=== PATIENT | female | born 1945 | race Caucasian/White ===

== ENCOUNTER 2017-02-16 20:43 | Emergency (ER) | payer MEDICARE, OTHER ==
[~2017-02-16] VITALS: Ht 149.9 cm; Wt 59.4 kg
[~2017-02-16 20:43] MED LIST: HYDR-2758 PO
[2017-02-16] MEDS ORDERED: DIPHTH,PERTUSS(ACELL),TET TOX 0.5 ML DISP.SYRIN. VAX IM ONE (22:00)
--- NOTE | 2017-02-16 22:06 | RAD ---
Examination: CT head and cervical spine without contrast. Exposure: One or more of the following individualized dose reduction techniques were utilized for this examination: 1. Automated exposure control 2. Adjustment of the mA and/or kV according to patient size 3. Use of iterative reconstruction technique. CT HEAD INDICATION: fall, hit head, no priors, COMPARISON: None Available. TECHNIQUE: 5 mm contiguous axial images were obtained from the skull base to the vertex in both bone and soft tissue algorithm. FINDINGS: Mild soft tissue swelling identified in the left forehead region likely soft tissue injury. Mild bilateral periventricular white matter hypodensities likely chronic small vessel ischemic disease. No evidence of acute intracranial hemorrhage. No extra-axial fluid collections. No mass effect or midline shift. Ventricular size is appropriate. Basal cisterns are patent. No fractures identified.Miranda-white differentiation is preserved.Paranasal sinuses and mastoid air cells are clear. IMPRESSION: 1. No acute intracranial findings. 2.Mild soft tissue swelling identified in the left forehead region likely soft tissue injury. CT CERVICAL SPINE INDICATION: fall, hit head, no priors, COMPARISON: None Available. Technique: 2.5 mm contiguous axial images were obtained from the skull base through the cervicothoracic junction in both bone and soft tissue algorithm. Additional sagittal and coronal reconstructions were also performed. FINDINGS: Vertebral body heights are maintained. The lateral masses of C1 are aligned upon C2. No fractures identified. The bony canal is patent throughout. There is minimal 2 mm anterolisthesis of C3 on C4. There is mild disc bulge with minimal protrusion identified at C3-C4 vertebral level causing mild anterior thecal sac impression. Minimal 1 mm anterolisthesis of C4 on C5. Mild diffuse disc bulge identified at this level causing minimal anterior thecal sac impression There is moderate to severe intervertebral disc height loss identified at C5-C6, C6-C7 level vertebral levels causing small posterior disc protrusions causing mild anterior thecal sac impression. The paraspinous soft tissues are unremarkable. Visualized intracranial contents are unremarkable. Lung apices are clear. IMPRESSION: 1. No acute fracture the cervical spine. Correlate clinically. 2. Multilevel degenerative changes cervical spine. Electronically signed by: Abdirashid Steven MD (02/16/2017 10:03 PM) [facility]
--- NOTE | 2017-02-16 22:11 | PHYS DOC ---
Past Medical History Past Medical History: Arthritis, Asthma, COPD, Diabetes-Type II, High Cholesterol, Hypertension, Hypothyroid Past Surgical History: Other Additional Past Surgical Histo: pt poor historian, left hand carpal tunnel, cardiac stent Alcohol Use: None Drug Use: None Adult General Chief Complaint Chief Complaint: HEAD, FACE, NECK, TRAUMA HPI HPI 71-year-old female with no history of coagulopathy or anticoagulation now status post trip and fall with a left forehead laceration and hematoma. Patient states she might have been briefly dazed but she did not have a loss of consciousness. She is not sure about her tetanus status but she has no neurologic complaints. Denies headache currently. She states her neck is mildly stiff but she has no pain in the back where her spine is. No prodromal symptoms. Review of Systems Review of Systems Constitutional: Denies fever or chills [] Eyes: Denies change in visual acuity, redness, or eye pain [] HENT: Denies nasal congestion or sore throat [] Respiratory: Denies cough or shortness of breath [] Cardiovascular: No additional information not addressed in HPI [] GI: Denies abdominal pain, nausea, vomiting, bloody stools or diarrhea [] : Denies dysuria or hematuria [] Musculoskeletal: Denies back pain or joint pain [] Integument: Denies rash or skin lesions [] Neurologic: Denies headache, focal weakness or sensory changes [] Endocrine: Denies polyuria or polydipsia [] Current Medications Current Medications Current Medications Medications (Trade) Dose Ordered Sig/Sindy Start Time Stop Time Status Last Admin Dose Admin Diphtheria/ Tetanus/Acell Pertussis (Boostrix) 0.5 ml ONCE ONCE 02/16/17 22:00 02/16/17 22:01 DC 02/16/17 21:52 0.5 ML Allergies Allergies Allergies Coded Allergies Type Severity Reaction Last Updated Verified Sulfa (Sulfonamide Antibiotics) Allergy Intermediate 02/16/17 Yes rofecoxib Allergy Intermediate 02/16/17 Yes Physical Exam Physical Exam Well-appearing 71-year-old female with a mild hematoma left forehead and a 2.5 cm laceration arcuate. Hemostatic. No bony tenderness or crepitus. Nontender C- spine with no step-off. Mild paraspinal soft tissue tenderness on the left. Nonfocal neurologic exam remainder of exam benign Constitutional: Well developed, well nourished, no acute distress, non-toxic appearance. [] HENT: Normocephalic, atraumatic, bilateral external ears normal, oropharynx moist, no oral exudates, nose normal. [] Eyes: PERRLA, EOMI, conjunctiva normal, no discharge. [] Neck: Normal range of motion, no tenderness, supple, no stridor. [] Cardiovascular:Heart rate regular rhythm, no murmur [] Lungs & Thorax: Bilateral breath sounds clear to auscultation [] Abdomen: Bowel sounds normal, soft, no tenderness, no masses, no pulsatile masses. [] Skin: Warm, dry, no erythema, no rash. [] Back: No tenderness, no CVA tenderness. [] Extremities: No tenderness, no cyanosis, no clubbing, ROM intact, no edema. [] Neurologic: Alert and oriented X 3, normal motor function, normal sensory function, no focal deficits noted. [] Psychologic: Affect normal, judgement normal, mood normal. [] Current Patient Data Vital Signs Vital Signs Date Time Temp Pulse Resp B/P (MAP) Pulse Ox O2 Delivery O2 Flow Rate FiO2 02/16/17 21:04 98.5 77 18 176/110 (132) 97 Room Air 98.5 EKG EKG [] Radiology/Procedures Radiology/Procedures [] Course & Med Decision Making Course & Med Decision Making Pertinent Labs and Imaging studies reviewed. (See chart for details) Signs and symptoms consistent with minor head injury with left forehead hematoma and laceration. Laceration irrigated and repaired with Dermabond. Patient tolerated well. Ice pack applied. CT of the head unremarkable as well as the C-spine. No evidence of fracture. This is consistent with patient's clinical exam with no bony tenderness. She continues to have a nonfocal neurologic exam both initially and on reevaluation prior to discharge. No further workup or treatment indicated. Patient family agree with outpatient follow-up and strict return precautions given [] Dragon Disclaimer Dragon Disclaimer This electronic medical record was generated, in whole or in part, using a voice recognition dictation system. Departure Departure Impression: Primary Impression: Minor head injury Additional Impressions: Traumatic hematoma of forehead Forehead laceration Cervical muscle strain Referrals: JHONNY STREETER Jr, MD (PCP) Patient Instructions: Head Injury, Adult Additional Instructions: You have suffered a minor head injury today. Her CAT scan of her head showed no bleeding or fracture. It appears he has some very mild neck strain so expect her neck muscles to be sore. Your CT neck showed no evidence of fracture of her cervical spine. You have a hematoma which means a collection of blood in the soft tissues of your left forehead. Be aware this will turn black and blue and likely give you a black eye on the left. Her laceration has been repaired with Dermabond. Do not pick scrub or apply ointment it will fall off on its own when the wound is healed. Her tetanus is been updated and this also includes pertussis coverage which means whooping cough coverage. I'll appear doctor tomorrow and return immediately for new severe worsening symptoms specifically for worsening headache and especially any change in mental status. Problem Qualifiers JORGE LAWRENCE MD Feb 16, 2017 22:11
[2017-02-16 22:30] VITALS: BP 147/68
== END 2017-02-16 22:58 | disposition home or self-care (01) ==
LOC: ER 20:43
DX: S01.81XA Laceration without foreign body of other part of head, initial encounter (principal); S16.1XXA Strain of muscle, fascia and tendon at neck level, initial encounter; E11.9 Type 2 diabetes mellitus without complications; E03.9 Hypothyroidism, unspecified; E78.00 Pure hypercholesterolemia, unspecified; I10 Essential (primary) hypertension; J44.9 Chronic obstructive pulmonary disease, unspecified; M19.90 Unspecified osteoarthritis, unspecified site; G56.02 Carpal tunnel syndrome, left upper limb; Z95.5 Presence of coronary angioplasty implant and graft; Z88.2 Allergy status to sulfonamides; Z88.6 Allergy status to analgesic agent; Y28.8XXA Contact with other sharp object, undetermined intent, initial encounter; Y93.89 Activity, other specified; Y99.8 Other external cause status; Y92.89 Other specified places as the place of occurrence of the external cause
CPT/HCPCS: 12001; 70450; 72125; 90471; 90715; 99284-25

== ENCOUNTER 2017-03-16 06:02 | Inpatient (IN) | payer MEDICARE, OTHER ==
[~2017-03-16] VITALS: Ht 149.9 cm; Wt 61.0 kg
--- NOTE | 2017-03-16 06:54 | PHYS DOC ---
Past Medical History Past Medical History: Asthma, CAD, Diabetes-Type II, Heart Disease, Hypertension, Hypothyroid Past Surgical History: Hysterectomy Additional Past Surgical Histo: pt poor historian, left hand carpal tunnel, cardiac stent Alcohol Use: None Drug Use: None Adult General Chief Complaint Chief Complaint: ALTERED MENTAL STATUS HPI HPI This is a pleasant 71-year-old female with history of diabetes, on Lantus, NovoLog, and metformin, history of hypertension, History of coronary artery disease, history of hypothyroidism who presents with acute onset of mental status changes. Patient got up earlier this morning to use the restroom on the way to the restroom she felt lightheaded and dizzy as if her sugars were falling. She did not take her Lantus last night as she normally should because uric noted that her sugars were low. When she experiences hypoglycemia she typically gets lightheaded and dizzy with diaphoresis and slowed mental status. This is much the same but unfortunately her symptoms lasted greater than 2-3 hours. This morning while sitting in the bathroom she developed diarrhea and increased generalized weakness. Patient's admits to no chest pain, no shortness of breath, no abdominal pain, no headache, no focal neurologic deficit, change in vision, no prior problems with speech. She did note that she was very weak and having difficulty getting up from the toilet which is why she sat there for as long she did. Her realized that she was so weak called family to help transport her to the hospital. She denies any other change in medications, denies any fevers, nausea, vomiting, and abdominal pain, UTI symptoms or other complaints. My syncope, altered mental status differential includes but not limited to: Neurally mediated vasovagal syncope, situational syncope, cardiac sinus syncope , orthostatic hypertension, medications, psychiatric interventions, neurologic syncope, cardiogenic syncopal B, to include organic heart disease congestive heart failure, cardiac dysrhythmia, seizure disorder, stroke or transient ischemic attack, bradycardia dysrhythmias, tachycardia dysrhythmias, PT, V. fib V. fib, cardiac abnormalities like first degree secondary third-degree AV blocks , prolonged QT, hypertrophic Obed myopathy, severe pulmonic stenosis, pulmonary arterial hypertension, atrial myxomas, aortic stenosis, valvular failure, alcohol consumption, adrenal insufficiency, drug effects from things like antidepressants, antihypertensive agents like beta blockers, vasodilators including calcium channel blockers and nitrates, autonomic insufficiency. Review of Systems Review of Systems Constitutional: Denies fever patient does describe some chills and diaphoresis with the symptoms. Eyes: Denies change in visual acuity, redness, or eye pain [] HENT: Denies nasal congestion or sore throat [] Respiratory: Denies cough or shortness of breath [] Cardiovascular: No additional information not addressed in HPI [] GI: Denies abdominal pain, nausea, vomiting, bloody stools or diarrhea [] : Denies dysuria or hematuria [] Musculoskeletal: Denies back pain does have a history of chronic joint pain secondary to rheumatoid arthritis. Integument: Denies rash or skin lesions [] Neurologic: She denies any headache or focal neurologic weakness but has felt generalized weakness. Endocrine: Denies polyuria or polydipsia [] Current Medications Current Medications Current Medications Medications (Trade) Dose Ordered Sig/Sindy Start Time Stop Time Status Last Admin Dose Admin Ciprofloxacin Lactate 200 ml @ 200 mls/hr Q12HR 03/16/17 08:30 Ondansetron HCl (Zofran) 4 mg PRN Q8HRS PRN 03/16/17 08:45 03/17/17 08:44 Sodium Chloride 1,000 ml @ 120 mls/hr Q8H20M 03/16/17 08:45 03/17/17 08:44 Allergies Allergies Allergies Coded Allergies Type Severity Reaction Last Updated Verified Sulfa (Sulfonamide Antibiotics) Allergy Intermediate 02/16/17 Yes rofecoxib Allergy Intermediate 02/16/17 Yes Physical Exam Physical Exam Patient's vital signs reviewed and noted patient not tachypnea tachycardic but patient is very hypertensive 193/111. She is not febrile. Constitutional: Well developed, thin she is mildly diaphoretic but awake alert and oriented 3 she seems lucid and interactive. HENT: Normocephalic, atraumatic, bilateral external ears normal, dry mucous membranes, no oral exudates, nose normal is a small area of Dermabond applied to the left superior brow. no Active bleeding no step-offs no obvious signs of trauma to the face. No midface instability. [] Eyes: PERRLA, EOMI, conjunctiva normal, no discharge. [] Neck: Normal range of motion, no tenderness, supple, no stridor. [] Cardiovascular:Heart rate regular rhythm, no murmur [] Lungs & Thorax: Bilateral breath sounds clear to auscultation [] Abdomen: Soft. Hyperactive bowel sounds. no Guarding rebound or organomegaly. Skin: Warm, no erythema, no rash. [] Back: No tenderness, no CVA tenderness. [] Extremities: No tenderness, no cyanosis, no clubbing, ROM intact, no edema. [] Neurologic: Alert and oriented X 3, normal motor function, normal sensory function, no focal deficits noted. Patient's does seem to have some memory issues but she is very lucid. She is very cognizant of the events that occurred early this morning. Cranial nerves II through XII are intact. Patient has normal sensation to light touch and appropriate medical office receptionist of lower extremity's. Patient's capillary refill is brisk +2 patient has mildly diaphoretic skin Psychologic: Affect normal, judgement normal, mood normal. [] Current Patient Data Vital Signs Vital Signs Date Time Temp Pulse Resp B/P (MAP) Pulse Ox O2 Delivery O2 Flow Rate FiO2 03/16/17 06:55 93.3 67 24 144/76 (98) 97 Nasal Cannula 2.0 93.3 Lab Values Laboratory Tests Test 03/16/17 06:08 03/16/17 06:25 Glucose (Fingerstick) 169 mg/dL (70-99) H White Blood Count 9.3 x10^3/uL (4.0-11.0) Red Blood Count 4.95 x10^6/uL (3.50-5.40) Hemoglobin 14.7 g/dL (12.0-15.5) Hematocrit 44.9 % (36.0-47.0) Mean Corpuscular Volume 91 fL (79-100) Mean Corpuscular Hemoglobin 30 pg (25-35) Mean Corpuscular Hemoglobin Concent 33 g/dL (31-37) Red Cell Distribution Width 15.2 % (11.5-14.5) H Platelet Count 100 x10^3/uL (140-400) L Neutrophils (%) (Auto) 70 % (31-73) Lymphocytes (%) (Auto) 17 % (24-48) L Monocytes (%) (Auto) 13 % (0-9) H Eosinophils (%) (Auto) 1 % (0-3) Basophils (%) (Auto) 1 % (0-3) Neutrophils # (Auto) 6.4 x10^3uL (1.8-7.7) Lymphocytes # (Auto) 1.5 x10^3/uL (1.0-4.8) Monocytes # (Auto) 1.2 x10^3/uL (0.0-1.1) H Eosinophils # (Auto) 0.1 x10^3/uL (0.0-0.7) Basophils # (Auto) 0.1 x10^3/uL (0.0-0.2) Urine Collection Type Unknown Urine Color Yellow Urine Clarity Clear Urine pH 5.5 Urine Specific [place] 1.015 Urine Protein Negative mg/dL (NEG-TRACE) Urine Glucose (UA) 500 mg/dL (NEG) Urine Ketones (Stick) Negative mg/dL (NEG) Urine Blood Negative (NEG) Urine Nitrite Positive (NEG) Urine Bilirubin Negative (NEG) Urine Urobilinogen Dipstick 0.2 mg/dL (0.2 mg/dL) Urine Leukocyte Esterase Moderate (NEG) Urine RBC Occ /HPF (0-2) Urine WBC 20-40 /HPF (0-4) Urine Squamous Epithelial Cells Mod /LPF Urine Bacteria Many /HPF (0-FEW) Sodium Level 143 mmol/L (136-145) Potassium Level 3.9 mmol/L (3.5-5.1) Chloride Level 104 mmol/L (98-107) Carbon Dioxide Level 26 mmol/L (21-32) Anion Gap 13 (6-14) Blood Urea Nitrogen 17 mg/dL (7-20) Creatinine 1.1 mg/dL (0.6-1.0) H Estimated GFR (Cockcroft-Gault) 48.8 BUN/Creatinine Ratio 15 (6-20) Glucose Level 131 mg/dL (70-99) H Lactic Acid Level 2.4 mmol/L (0.4-2.0) H Calcium Level 10.2 mg/dL (8.5-10.1) H Magnesium Level 1.6 mg/dL (1.8-2.4) L Total Bilirubin 0.6 mg/dL (0.2-1.0) Aspartate Amino Transferase (AST) 36 U/L (15-37) Alanine Aminotransferase (ALT) 23 U/L (14-59) Alkaline Phosphatase 126 U/L (46-116) H Creatine Kinase 62 U/L (26-192) Creatine Kinase MB (Mass) 3.2 ng/mL (0.0-3.6) Creatine Kinase MB Relative Index % (0-4) Troponin I Quantitative 0.142 ng/mL (0.000-0.055) VV-Vfe-R-Type Natriuretic Peptide 422 pg/mL (0-124) H Total Protein 9.4 g/dL (6.4-8.2) H Albumin 4.0 g/dL (3.4-5.0) Albumin/Globulin Ratio 0.7 (1.0-1.7) L Thyroid Stimulating Hormone (TSH) 5.348 uIU/mL (0.358-3.74) H Laboratory Tests 03/16/17 06:25 Laboratory Tests 03/16/17 06:25 EKG EKG [] EKG timed 6:10 AM demonstrates according to Dr. Lynch who read the EKG normal sinus rhythm with a heart rate of 67 NH interval was 212 which demonstrates first grade AV block QRS is 110 which is mildly elevated patient demonstrates a prolonged QT of 491. Radiology/Procedures Radiology/Procedures [] IMAGING REPORT Signed PATIENT: PHUONG MORENO ACCOUNT: [id number] : 1945 LOCATION: ER AGE: 71 SEX: F EXAM STATUS: REG ER ORD. PHYSICIAN: KRYSTA LYNCH MD REASON: ams PROCEDURE: PORTABLE CHEST 1V Indication change in mental status. Shortness of breath. Protocol study. A single view of the chest was obtained. No prior imaging of the chest is available. Heart size is at the upper limits of normal. There is no gross congestive heart failure. There is linear atelectasis or scar in the mid lung smith bilaterally. There is no significant pleural fluid. No consolidated pneumonia is seen. IMPRESSION: Areas of scarring or atelectasis in both lungs. A definite acute finding in the chest is not seen DICTATED and SIGNED BY: FREDDY BELLA MD DATE: 03/16/17 0754 CC: KRYSTA LYNCH MD; JHONNY STREETER Jr, MD ~ Impressions: [id number] [place] [address] IMAGING REPORT Signed PATIENT: PHUONG MORENO ACCOUNT: [id number] : 1945 LOCATION: ER AGE: 71 SEX: F EXAM STATUS: REG ER ORD. PHYSICIAN: KRYSTA LYNCH MD REASON: ams PROCEDURE: CT HEAD WO CONTRAST Indication change in mental status. Noncontrast images of the head were obtained. Note is made of a previous examination just under one month ago. The calvarium appears unremarkable. The visualized paranasal sinuses appear unremarkable. There is no subdural or epidural hematoma. There is no mass or midline shift. There is mild atrophy. There is some increased lucency in the deep white matter compatible with microvascular disease. No hemorrhage or acute finding is seen. There has not been a significant change when compared to the previous exam. IMPRESSION: No acute finding intracranially. No significant change. PQRS Compliance Statement: One or more of the following individualized dose reduction techniques were utilized for this examination: 1. Automated exposure control 2. Adjustment of the mA and/or kV according to patient size 3. Use of iterative reconstruction technique DICTATED and SIGNED BY: FREDDY BELLA MD DATE: 03/16/1719 CC: KRYSTA LYNCH MD; JHONNY STREETER Jr, MD ~ Course & Med Decision Making Course & Med Decision Making Pertinent Labs and Imaging studies reviewed. (See chart for details) she presents with dizziness and near syncope and generalized weakness and occurred this morning while walking to the bathroom. She denies any chest pain or shortness of breath just fatigue. Patient felt that her sugars are dropping which she's had several times in the past. She has had a history of heart disease, diabetes, hyperlipidemia, hyperthyroidism with no change in medications although she says her sugars were low less on Brisa did not take her regular regimen of medications. She will this morning with symptoms of dizziness weakness was sitting in the bathroom. She became acutely altered. Her Accu-Chek on arrival was 162 [] Semaphore Operator note: Internal medicine physician page at 8:20 AM Semaphore Operator called at of the service Dr. MONTAÑO Consult called back at 8:26 AM Discussed the case I presented and they agreed with admission. Time of acceptance 82 6 AM. Patient tells me that their symptoms given during CC are improved. We reviewed labs and radiology reports with patient and any family at bedside. Time is now 8 AM. Patient's x-ray x-ray is unremarkable 1 view chest x-ray read by Dr. Lynch shows no signs of congestive heart failure or infiltrate or pneumothorax. She does tell me she is hungry and thirsty and would like a meal. I did tell her about her elevated troponin and likelihood of need admission secondary to her near syncope and possible hypoglycemic event. Patient tells me that their symptoms given during CC are improved. We reviewed labs and radiology reports with patient and any family at bedside. Patient's feeling markedly better at 840 a.m. She's been accepted in the hospitalist service. Patient has no elevated troponin and after reviewing her laboratory work nursing notes and vital signs is evident that she may have a urinary tract infection as well which may be causing her symptoms. Given her elevated troponin , elevated sugar level, her tachycardia and elevated lactic acid. I believe the patient to be suffering from early signs of urosepsis. She's been giving a second liter of fluids she will have a dose of antibiotics of ciprofloxacin given here in the IV in the ER. Patient's aunt had blood cultures completed and will be admitted to telemetry for monitoring for serial troponins. Impression: Elevated troponin, possible urosepsis, elevated glucose hyperglycemia, near syncope, weakness, and a lactic acid. That is elevated. Disposition: Admission to the hospital to the telemetry unit. Will have consultation by cardiology Dr. Savage. I spent approximately 45-50 minutes working and engaged directly in the patient care providing critical care evaluation this includes but not limited to time spent engaged in work directly related to the individual patients care. I spent time at the bedside, reviewing test results, discussing the case with staff, documenting the medical record and time spent with EMS discussing specific treatment issues when the patient presented and during this evaluation. Dragon Disclaimer Dragon Disclaimer This electronic medical record was generated, in whole or in part, using a voice recognition dictation system. Departure Departure Impression: Primary Impression: Elevated troponin Additional Impressions: Sepsis Hyperglycemia Altered mental status Generalized weakness Disposition: ADMITTED INPATIENT Admitting Physician: Hong Montaño Condition: GUARDED Referrals: JHONNY STREETER Jr, MD (PCP) Problem Qualifiers KRYSTA LYNHC MD Mar 16, 2017 06:54
[2017-03-16 07:14] LABS: BASO # 0.1 x10^3/uL (0.0-0.2); BASO % 1 % (0-3); EOS % 1 % (0-3); HEMATOCRIT 44.9 % (36.0-47.0); HEMOGLOBIN 14.7 g/dL (12.0-15.5); LYMPH # 1.5 x10^3/uL (1.0-4.8); LYMPH % 17 % (24-48); MEAN CORPUSCULAR HEMOGLOBIN 30 pg (25-35); MEAN CORPUSCULAR HGB CONC 33 g/dL (31-37); MEAN CORPUSCULAR VOLUME 91 fL (79-100); MONO % 13 % (0-9); NEUT % 70 % (31-73); PLATELET COUNT 100 x10^3/uL (140-400); RED BLOOD COUNT 4.95 x10^6/uL (3.50-5.40); RED CELL DISTRIBUTION WIDTH 15.2 % (11.5-14.5); WHITE BLOOD COUNT 9.3 x10^3/uL (4.0-11.0)
[2017-03-16 07:17] LABS: BILIRUBIN,URINE NEGATIVE (NEG); GLUCOSE,URINE 500 mg/dL (NEG); NITRITE,URINE POSITIVE (NEG); PH,URINE 5.5; PROTEIN,URINE NEGATIVE (NEG-TRACE); UROBILINOGEN,URINE 0.2 mg/dL (0.2 mg/dL)
[2017-03-16 07:33] LABS: ALBUMIN/GLOBULIN RATIO 0.7 (1.0-1.7); GFR 48.8; MAGNESIUM 1.6 mg/dL (1.8-2.4); POTASSIUM 3.9 mmol/L (3.5-5.1); TOTAL BILIRUBIN 0.6 mg/dL (0.2-1.0); TOTAL PROTEIN 9.4 g/dL (6.4-8.2)
[2017-03-16 07:38] LABS: CALCIUM 10.2 mg/dL (8.5-10.1); CREATININE 1.1 mg/dL (0.6-1.0)
[2017-03-16 07:39] LABS: CKMB MASS 3.2 ng/mL (0.0-3.6); CREATINE KINASE 62 U/L (26-192)
[2017-03-16 07:40] LABS: BACTERIA,URINE MANY /HPF (0-FEW); RBC,URINE OCC /HPF (0-2); SQUAMOUS EPITHELIAL CELL,UR MOD /LPF; WBC,URINE 20-40 /HPF (0-4)
--- NOTE | 2017-03-16 07:58 | RAD ---
Indication change in mental status. Shortness of breath. Protocol study. A single view of the chest was obtained. No prior imaging of the chest is available. Heart size is at the upper limits of normal. There is no gross congestive heart failure. There is linear atelectasis or scar in the mid lung smith bilaterally. There is no significant pleural fluid. No consolidated pneumonia is seen. IMPRESSION: Areas of scarring or atelectasis in both lungs. A definite acute finding in the chest is not seen
--- NOTE | 2017-03-16 08:25 | RAD ---
Indication change in mental status. Noncontrast images of the head were obtained. Note is made of a previous examination just under one month ago. The calvarium appears unremarkable. The visualized paranasal sinuses appear unremarkable. There is no subdural or epidural hematoma. There is no mass or midline shift. There is mild atrophy. There is some increased lucency in the deep white matter compatible with microvascular disease. No hemorrhage or acute finding is seen. There has not been a significant change when compared to the previous exam. IMPRESSION: No acute finding intracranially. No significant change. PQRS Compliance Statement: One or more of the following individualized dose reduction techniques were utilized for this examination: 1. Automated exposure control 2. Adjustment of the mA and/or kV according to patient size 3. Use of iterative reconstruction technique
[2017-03-16] MEDS ORDERED: IV NORMAL SALINE 1000ML BAG 1,000 ML IV ONE (08:30)
[2017-03-16] MEDS ORDERED: ONDANSETRON PF 4 MG/2 ML VIAL. IV PRN ×2 (08:45→15:45)
[2017-03-16] MEDS: CIPROFLOXACIN 400MG PREMIX 200 ML IV SCH ×2 (09:20→21:20)
[2017-03-16] MEDS: IV NORMAL SALINE 1000ML BAG 1,000 ML IV SCH ×2 (10:00→17:05)
--- NOTE | 2017-03-16 10:36 | EKG ---
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
[2017-03-16 10:49] VITALS: BP 169/84
[2017-03-16 11:00] VITALS: BP 157/72
[2017-03-16] MEDS ORDERED: PRED5TAB PO (12:56)
[2017-03-16] MEDS ORDERED: ASPI-482 PO (12:56)
[2017-03-16] MEDS ORDERED: INSU100I17 SUBCUT (12:56)
[2017-03-16] MEDS ORDERED: VENTOLIN HFA18 GM INH (12:56)
[2017-03-16] MEDS ORDERED: SERT100T8 PO (12:56)
[2017-03-16] MEDS ORDERED: LEVO75TA5 PO (12:56)
[2017-03-16] MEDS ORDERED: INSU100I13 SUBCUT (12:56)
[2017-03-16] MEDS ORDERED: BUDE10.22 IH (12:56)
[2017-03-16] MEDS ORDERED: LOSA100T6 PO (12:56)
[2017-03-16] MEDS ORDERED: METF500T4 PO (12:56)
[2017-03-16] MEDS ORDERED: EZET10TA18 PO (12:56)
[2017-03-16] MEDS ORDERED: METO25TA4 PO (12:56)
[2017-03-16] MEDS ORDERED: OMEG1CAP6 PO (12:56)
[2017-03-16] MEDS ORDERED: CETI10TA16 PO (12:56)
[2017-03-16] MEDS ORDERED: CHOL500021 PO (12:56)
[2017-03-16] MEDS ORDERED: BUPR100T8 PO (12:56)
[2017-03-16] MEDS ORDERED: ATORVASTATIN CA80 MG PO (12:56)
[2017-03-16 15:00] VITALS: BP 142/78
[2017-03-16] MEDS ORDERED: HYDROcodone/APAP 5/325MG 1 TAB TABLET PO PRN (15:45)
[2017-03-16] MEDS ORDERED: MORPHINE SULFATE 2 MG/ML DISP.SYRIN. IV PRN (15:45)
[2017-03-16] MEDS ORDERED: DEXTROSE 50% 25 GM / 50ML DISP.SYRIN. IV PRN (15:45)
[2017-03-16] MEDS ORDERED: ACETAMINOPHEN 325 MG TABLET. PO PRN (15:45)
[2017-03-16] MEDS ORDERED: DOCUSATE SODIUM 100 MG CAPSULE. PO PRN (15:45)
[2017-03-16] MEDS ORDERED: traMADol 50 MG TABLET PO PRN (15:45)
[2017-03-16] MEDS ORDERED: hydrALAZINE 20 MG/ML VIAL. IVP PRN (15:45)
--- NOTE | 2017-03-16 15:55 | PDOC1 ---
History and Physical Date of Admission Date of Admission 03/16/17 Identification/Chief Complaint Chief Complaint syncope Problems: Source Source: Chart review, Patient History of Present Illness History of Present Illness HPI HPI This is a pleasant 71-year-old female with history of diabetes, on Lantus, NovoLog, and metformin, history of hypertension, History of coronary artery disease with 1 stent, hypothyroidism, was sent for syncope. Pt is a poor historian. Pt said she was in the bathroom, then felt diaphoresis, thought to be hypoglycemia, but didnot check it, then likely syncoped, not hitting head, still sitting on the toilet. She doesnot remember what happened. did have incontinence. SHE told me use lantus 60u qhs, then aspart 30u tid, eating well. recentlly have more episode of hypoglycemia. could not reach her by phone, then called grand daughter to come to check her, then called ems. Pt feels weakness, otherwise no sob, no chest pain. has chronic urine incontinence for2 years, no dysuria, or frequency. T 93 IN er. GLUS 50 as per nurse in ER. Past Medical History Past Medical History Asthma, CAD, Diabetes-Type II, Heart Disease, Hypertension, Hypothyroid Past Surgical History Past Surgical History Past Surgical History: Hysterectomy Family History Family History: Hypertension Social History Smoke: No ALCOHOL: none Drugs: None Current Problem List Problem List Problems Medical Problems: (1) Altered mental status Status: Acute (2) Elevated troponin Status: Acute (3) Generalized weakness Status: Acute (4) Hyperglycemia Status: Acute (5) Sepsis Status: Acute Current Medications Current Medications Current Medications Medications (Trade) Dose Ordered Sig/Sindy Start Time Stop Time Status Last Admin Dose Admin Ciprofloxacin Lactate 200 ml @ 200 mls/hr Q12HR 03/16/17 08:30 03/16/17 09:20 200 MLS/HR Ondansetron HCl (Zofran) 4 mg PRN Q8HRS PRN 03/16/17 08:45 03/17/17 08:44 Sodium Chloride 1,000 ml @ 120 mls/hr Q8H20M 03/16/17 08:45 03/17/17 08:44 03/16/17 10:00 120 MLS/HR Allergies Allergies Allergies Coded Allergies Type Severity Reaction Last Updated Verified Sulfa (Sulfonamide Antibiotics) Allergy Intermediate 02/16/17 Yes rofecoxib Allergy Intermediate 02/16/17 Yes ROS Review of System CONSTITUTIONAL: No fever or chills EYES: No recent changes SKIN: No rash or itching CARDIOVASCULAR: No chest pain, syncope, palpitations, or edema RESPIRATORY: No SOB or cough GASTROINTESTINAL: No nausea, vomiting or abdominal pain NEUROLOGICAL: No headaches or weakness ENDOCRINE: No cold or heat intolerance GENITOURINARY: No urgency or frequency of urination MUSCULOSKELETAL: No back pain or joint pain LYMPHATICS: No enlarged lymph nodes PSYCHIATRIC: No anxiety or depression Physical Exam Physical Exam GEN.: No apparent distress. Alert and oriented. HEENT: Head is normocephalic, atraumatic NECK: Supple. LUNGS: Clear to auscultation. HEART: RRR, S1, S2 present. Peripheral pulses intact ABDOMEN: Soft, nontender. Positive bowel sounds. EXTREMITIES: Without any cyanosis. NEUROLOGIC: Normal speech, normal tone PSYCHIATRIC: Normal affect, normal mood. SKIN: No ulcerations Vitals Vitals Vital Signs Date Time Temp Pulse Resp B/P (MAP) Pulse Ox O2 Delivery O2 Flow Rate FiO2 03/16/17 11:00 98.1 75 16 157/72 (100) 99 Room Air 98.1 03/16/17 06:55 2.0 Labs Labs Laboratory Tests Test 03/16/17 06:08 03/16/17 06:25 03/16/17 09:25 03/16/17 10:30 Glucose (Fingerstick) 169 mg/dL (70-99) 93 mg/dL (70-99) White Blood Count 9.3 x10^3/uL (4.0-11.0) Red Blood Count 4.95 x10^6/uL (3.50-5.40) Hemoglobin 14.7 g/dL (12.0-15.5) Hematocrit 44.9 % (36.0-47.0) Mean Corpuscular Volume 91 fL (79-100) Mean Corpuscular Hemoglobin 30 pg (25-35) Mean Corpuscular Hemoglobin Concent 33 g/dL (31-37) Red Cell Distribution Width 15.2 % (11.5-14.5) Platelet Count 100 x10^3/uL (140-400) Neutrophils (%) (Auto) 70 % (31-73) Lymphocytes (%) (Auto) 17 % (24-48) Monocytes (%) (Auto) 13 % (0-9) Eosinophils (%) (Auto) 1 % (0-3) Basophils (%) (Auto) 1 % (0-3) Neutrophils # (Auto) 6.4 x10^3uL (1.8-7.7) Lymphocytes # (Auto) 1.5 x10^3/uL (1.0-4.8) Monocytes # (Auto) 1.2 x10^3/uL (0.0-1.1) Eosinophils # (Auto) 0.1 x10^3/uL (0.0-0.7) Basophils # (Auto) 0.1 x10^3/uL (0.0-0.2) Urine Collection Type Unknown Urine Color Yellow Urine Clarity Clear Urine pH 5.5 Urine Specific [place] 1.015 Urine Protein Negative mg/dL (NEG-TRACE) Urine Glucose (UA) 500 mg/dL (NEG) Urine Ketones (Stick) Negative mg/dL (NEG) Urine Blood Negative (NEG) Urine Nitrite Positive (NEG) Urine Bilirubin Negative (NEG) Urine Urobilinogen Dipstick 0.2 mg/dL (0.2 mg/dL) Urine Leukocyte Esterase Moderate (NEG) Urine RBC Occ /HPF (0-2) Urine WBC 20-40 /HPF (0-4) Urine Squamous Epithelial Cells Mod /LPF Urine Bacteria Many /HPF (0-FEW) Sodium Level 143 mmol/L (136-145) Potassium Level 3.9 mmol/L (3.5-5.1) Chloride Level 104 mmol/L (98-107) Carbon Dioxide Level 26 mmol/L (21-32) Anion Gap 13 (6-14) Blood Urea Nitrogen 17 mg/dL (7-20) Creatinine 1.1 mg/dL (0.6-1.0) Estimated GFR (Cockcroft-Gault) 48.8 BUN/Creatinine Ratio 15 (6-20) Glucose Level 131 mg/dL (70-99) Lactic Acid Level 2.4 mmol/L (0.4-2.0) 2.1 mmol/L (0.4-2.0) Calcium Level 10.2 mg/dL (8.5-10.1) Magnesium Level 1.6 mg/dL (1.8-2.4) Total Bilirubin 0.6 mg/dL (0.2-1.0) Aspartate Amino Transf (AST/SGOT) 36 U/L (15-37) Alanine Aminotransferase (ALT/SGPT) 23 U/L (14-59) Alkaline Phosphatase 126 U/L (46-116) Creatine Kinase 62 U/L (26-192) Creatine Kinase MB (Mass) 3.2 ng/mL (0.0-3.6) Creatine Kinase MB Relative Index % (0-4) Troponin I Quantitative 0.142 ng/mL (0.000-0.055) VX-Eeh-C-Type Natriuretic Peptide 422 pg/mL (0-124) Total Protein 9.4 g/dL (6.4-8.2) Albumin 4.0 g/dL (3.4-5.0) Albumin/Globulin Ratio 0.7 (1.0-1.7) Thyroid Stimulating Hormone (TSH) 5.348 uIU/mL (0.358-3.74) Test 03/16/17 11:42 03/16/17 14:15 Glucose (Fingerstick) 97 mg/dL (70-99) Troponin I Quantitative 0.174 ng/mL (0.000-0.055) Laboratory Tests Test 03/16/17 06:08 03/16/17 06:25 03/16/17 09:25 03/16/17 10:30 Glucose (Fingerstick) 169 mg/dL (70-99) 93 mg/dL (70-99) White Blood Count 9.3 x10^3/uL (4.0-11.0) Red Blood Count 4.95 x10^6/uL (3.50-5.40) Hemoglobin 14.7 g/dL (12.0-15.5) Hematocrit 44.9 % (36.0-47.0) Mean Corpuscular Volume 91 fL (79-100) Mean Corpuscular Hemoglobin 30 pg (25-35) Mean Corpuscular Hemoglobin Concent 33 g/dL (31-37) Red Cell Distribution Width 15.2 % (11.5-14.5) Platelet Count 100 x10^3/uL (140-400) Neutrophils (%) (Auto) 70 % (31-73) Lymphocytes (%) (Auto) 17 % (24-48) Monocytes (%) (Auto) 13 % (0-9) Eosinophils (%) (Auto) 1 % (0-3) Basophils (%) (Auto) 1 % (0-3) Neutrophils # (Auto) 6.4 x10^3uL (1.8-7.7) Lymphocytes # (Auto) 1.5 x10^3/uL (1.0-4.8) Monocytes # (Auto) 1.2 x10^3/uL (0.0-1.1) Eosinophils # (Auto) 0.1 x10^3/uL (0.0-0.7) Basophils # (Auto) 0.1 x10^3/uL (0.0-0.2) Urine Collection Type Unknown Urine Color Yellow Urine Clarity Clear Urine pH 5.5 Urine Specific [place] 1.015 Urine Protein Negative mg/dL (NEG-TRACE) Urine Glucose (UA) 500 mg/dL (NEG) Urine Ketones (Stick) Negative mg/dL (NEG) Urine Blood Negative (NEG) Urine Nitrite Positive (NEG) Urine Bilirubin Negative (NEG) Urine Urobilinogen Dipstick 0.2 mg/dL (0.2 mg/dL) Urine Leukocyte Esterase Moderate (NEG) Urine RBC Occ /HPF (0-2) Urine WBC 20-40 /HPF (0-4) Urine Squamous Epithelial Cells Mod /LPF Urine Bacteria Many /HPF (0-FEW) Sodium Level 143 mmol/L (136-145) Potassium Level 3.9 mmol/L (3.5-5.1) Chloride Level 104 mmol/L (98-107) Carbon Dioxide Level 26 mmol/L (21-32) Anion Gap 13 (6-14) Blood Urea Nitrogen 17 mg/dL (7-20) Creatinine 1.1 mg/dL (0.6-1.0) Estimated GFR (Cockcroft-Gault) 48.8 BUN/Creatinine Ratio 15 (6-20) Glucose Level 131 mg/dL (70-99) Lactic Acid Level 2.4 mmol/L (0.4-2.0) 2.1 mmol/L (0.4-2.0) Calcium Level 10.2 mg/dL (8.5-10.1) Magnesium Level 1.6 mg/dL (1.8-2.4) Total Bilirubin 0.6 mg/dL (0.2-1.0) Aspartate Amino Transf (AST/SGOT) 36 U/L (15-37) Alanine Aminotransferase (ALT/SGPT) 23 U/L (14-59) Alkaline Phosphatase 126 U/L (46-116) Creatine Kinase 62 U/L (26-192) Creatine Kinase MB (Mass) 3.2 ng/mL (0.0-3.6) Creatine Kinase MB Relative Index % (0-4) Troponin I Quantitative 0.142 ng/mL (0.000-0.055) QQ-Fdd-X-Type Natriuretic Peptide 422 pg/mL (0-124) Total Protein 9.4 g/dL (6.4-8.2) Albumin 4.0 g/dL (3.4-5.0) Albumin/Globulin Ratio 0.7 (1.0-1.7) Thyroid Stimulating Hormone (TSH) 5.348 uIU/mL (0.358-3.74) Test 03/16/17 11:42 03/16/17 14:15 Glucose (Fingerstick) 97 mg/dL (70-99) Troponin I Quantitative 0.174 ng/mL (0.000-0.055) VTE Prophylaxis Ordered VTE Prophylaxis Devices: Yes VTE Pharmacological Prophylaxi: Yes Assessment/Plan Assessment/Plan syncope, vasovagal? vs, hypoglycemia h/o CAD wo chest pain now, + troponin dm2 htn h/o asthma hld hypothyroidism hypothermia ckd3 lactate acidosis chronic urine incontinence, possible uti plan: card consult check hba1c insulin levemir 30u qhs, aspart 10 tid, ssi ptot dvt ppx cont home meds tsh high, check t4 check echo cipro for now, fu ucx check cortisol tmr JUAN C Banks MD Mar 16, 2017 15:55
[2017-03-16] MEDS: CETIRIZINE HCL 10 MG TABLET. PO SCH (16:18)
[2017-03-16] MEDS: ASPIRIN ENTERIC COATED 81 MG TABLET.DR. PO SCH (16:18)
[2017-03-16] MEDS: EZETIMIBE 10 MG TABLET. PO SCH (16:19)
[2017-03-16] MEDS: LOSARTAN POTASSIUM 50 MG TABLET. PO SCH (16:20)
[2017-03-16] MEDS: predniSONE 5 MG TABLET PO SCH (16:20)
[2017-03-16] MEDS: METOPROLOL TART IMMED RELEASE 25 MG TABLET. PO SCH (16:21)
[2017-03-16] MEDS: LEVOTHYROXINE 75 MCG TABLET PO SCH (16:21)
[2017-03-16] MEDS ORDERED: MAGNESIUM SULFATE 2GM 50 ML IV ONE (16:30)
--- NOTE | 2017-03-16 16:40 | PDOC2 ---
CONSULT Date of Consult Date of Consult DATE: 03/16/17 TIME: 16:32 Reason for Consult Reason for Consult: Syncope Referring Physician Referring Physician: Dr Mike Identification/Chief Complaint Chief Complaint Syncope Problems: History of Present Illness Reason for Visit: This patient is a very pleasant 71-year-old lady that I had seen before about 21 years ago. She doesn't particularly like to go see doctors but she is a diabetic with hypertension and over 2 years ago she had some problems with chest pains and was seen at [facility] where she had a heart catheterization and one stent was deployed. Since then she denies having any heart problems. Her diabetes has been difficult to manage and she is on multiple medications. She has had some episodes of hypoglycemia in the past. This time she was in the bathroom when she started feeling dizzy and lightheaded and apparently she may have fallen down and passed out. She had no palpitations, no chest pains before or after the episode and when she came to her granddaughter had come to see her to check on her and she was confused and may have been a little combative although she does not remember this. This may have been an ongoing weakness syncope. At the present time the patient is sitting comfortably and denies having any discomforts. At the time that the patient had the event the blood sugars were not checked to rule out the possibility of hypoglycemia. Past Medical History Cardiovascular: CAD, HTN, Syncope Endocrine: Diabetes, Hypothyroidism Family History Family History: Hypertension Social History No ALCOHOL: none Drugs: None Current Problem List Problem List Problems Medical Problems: (1) Altered mental status Status: Acute (2) Elevated troponin Status: Acute (3) Generalized weakness Status: Acute (4) Hyperglycemia Status: Acute (5) Sepsis Status: Acute Current Medications Current Medications Current Medications Sodium Chloride 1,000 ml @ 1,000 mls/hr 1X ONCE IV Last administered on 09:20; Start 03/16/17 at 08:30; Stop 03/16/17 at 09:29; Status DC Ciprofloxacin Lactate 200 ml @ 200 mls/hr Q12HR IV Last administered on 09:20; Start 03/16/17 at 08:30 Ondansetron HCl (Zofran) 4 mg PRN Q8HRS PRN IV NAUSEA/VOMITING; Start 03/16/17 at 08:45; Stop 03/17/17 at 08:44 Sodium Chloride 1,000 ml @ 120 mls/hr Q8H20M IV Last administered on 03/16/17 10:00; Start 03/16/17 at 08:45; Stop 03/17/17 at 08:44 Aspirin (Ecotrin) 81 mg DAILY PO Last administered on 03/16/17 16:18; Start 03/16/17 at 16:30 Bupropion HCl (Wellbutrin Sr) 100 mg BID PO ; Start 03/16/17 at 21:00 Cetirizine HCl (ZyrTEC) 10 mg DAILY PO Last administered on 03/16/17 16:18; Start 03/16/17 at 16:30 EZETIMIBE (Zetia) 10 mg DAILY PO Last administered on 03/16/17 16:19; Start 03/16/17 at 16:30 Acetaminophen/ Hydrocodone Bitart (Lortab 5/325) 1 tab PRN Q6HRS PRN PO PAIN; Start 03/16/17 at 15:45 Insulin Aspart (NovoLOG) 10 units TIDAC SQ ; Start 03/16/17 at 16:30 Levothyroxine Sodium (Synthroid) 75 mcg DAILY07 PO Last administered on 16:21; Start 03/16/17 at 16:30 Metformin HCl (Glucophage) 500 mg BIDWMEALS PO ; Start 03/16/17 at 17:00; Stop at 17:00; Status DC Metoprolol Tartrate (Lopressor) 25 mg DAILY PO Last administered on 03/16/17 16 :21; Start 03/16/17 at 16:30 Prednisone (Prednisone) 5 mg DAILY PO Last administered on 03/16/17 16:20; Start 03/16/17 at 16:30 Non-Formulary Medication 2 puff BID INH ; Start 03/16/17 at 21:00; Status UNV Atorvastatin Calcium (Lipitor) 80 mg QHS PO ; Start 03/16/17 at 21:00 Non-Formulary Medication 2 puff BID IH ; Start 03/16/17 at 21:00; Status UNV Ergocalciferol (Vitamin D2) 50,000 unit WEEKLY PO ; Start 03/25/17 at 09:00 Insulin Detemir (Levemir) 33 units QHS SQ ; Start 03/16/17 at 21:00; Stop at 21:00; Status DC Losartan Potassium (Cozaar) 100 mg DAILY PO Last administered on 03/16/17 16:20 ; Start 03/16/17 at 16:30 Sertraline HCl (Zoloft) 100 mg BID PO ; Start 03/16/17 at 21:00 Acetaminophen (Tylenol) 650 mg PRN Q6HRS PRN PO FEVER; Start 03/16/17 at 15:45 Ondansetron HCl (Zofran) 4 mg PRN Q6HRS PRN IV NAUSEA/VOMITING; Start 03/16/17 at 15:45 Morphine Sulfate 2 mg PRN Q2HR PRN IV PAIN; Start 03/16/17 at 15:45 Tramadol HCl (Ultram) 50 mg PRN Q6HRS PRN PO PAIN; Start 03/16/17 at 15:45 Hydralazine HCl (Apresoline) 10 mg PRN Q4HRS PRN IVP ELEVATED BP, SEE COMMENTS ; Start 03/16/17 at 15:45 Docusate Sodium (Colace) 100 mg PRN DAILY PRN PO CONSTIPATION; Start 03/16/17 at 15:45 Enoxaparin Sodium (Lovenox 60mg Syringe) 60 mg 1X ONCE SQ Last administered on 03/16/17 16:18; Start 03/16/17 at 16:30; Stop 03/16/17 at 16:31 Insulin Aspart (NovoLOG) 0-9 UNITS TIDWMEALS SQ ; Start 03/16/17 at 17:00 Dextrose (Dextrose 50%-Water Syringe) 12.5 gm PRN Q15MIN PRN IV SEE COMMENTS; Start 03/16/17 at 15:45 Insulin Detemir (Levemir) 30 units QHS SQ ; Start 03/16/17 at 21:00 Magnesium Sulfate/ Dextrose 50 ml @ 25 mls/hr 1X ONCE IV Last administered on 03/16/17 16:29; Start 03/16/17 at 16:30; Stop 03/16/17 at 18:29 Albuterol Sulfate (Ventolin Neb Soln) 2.5 mg RTQID NEB ; Start 03/16/17 at 20:00 Budesonide (Pulmicort) 0.5 mg RTBID NEB ; Start 03/16/17 at 20:00 Active Scripts Active Hydrocodone-Apap 5-325 (Hydrocodone Bit/Acetaminophen) 1 Each Tablet 1 Tab PO PRN Q6HRS PRN Reported Atorvastatin Calcium 80 Mg Tablet 1 Tab PO HS Ventolin Hfa Inhaler (Albuterol Sulfate) 18 Gm Hfa.aer.ad 2 Puff INH BID Symbicort 80-4.5 Mcg Inhaler (Budesonide/Formoterol Fumarate) 10.2 Gm Hfa.aer.ad 2 Puff IH BID Fish Oil 1,000 Mg Capsule ([place]-3 Fatty Acids/Fish Oil) 1 Each Capsule 1.5 Each PO DAILY D3-50 (Cholecalciferol (Vitamin D3)) 50,000 Unit Capsule 1 Cap PO WEEKLY Cetirizine Hcl 10 Mg Tablet 1 Tab PO DAILY Aspir 81 (Aspirin) 81 Mg Tablet.dr 1 Tab PO DAILY Lantus Solostar (Insulin Glargine,Hum.rec.anlog) 100 Unit/1 Ml Insuln.pen 33 Units SUBCUT HS Novolog Flexpen (Insulin Aspart) 100 Unit/1 Ml Insuln.pen 10-15 Units SUBCUT TIDAC Metformin Hcl 500 Mg Tablet 500 Mg PO BID Sertraline Hcl 100 Mg Tablet 100 Mg PO BID Zetia (Ezetimibe) 10 Mg Tablet 10 Mg PO DAILY Metoprolol Tartrate 25 Mg Tablet 25 Mg PO DAILY Bupropion Hcl Sr (Bupropion Hcl) 100 Mg Tablet.er 100 Mg PO BID Losartan Potassium 100 Mg Tablet 100 Mg PO DAILY Levothyroxine Sodium 75 Mcg Tablet 75 Mg PO DAILY Prednisone 5 Mg Tablet 5 Mg PO DAILY Allergies Allergies: Coded Allergies: Sulfa (Sulfonamide Antibiotics) (Verified Allergy, Intermediate, 02/16/17) rofecoxib (Verified Allergy, Intermediate, 02/16/17) Physical Exam General: Alert, Oriented X3, Cooperative HEENT: PERRLA Lungs: Clear to auscultation Heart: Regular rate, Normal S1, Normal S2 Abdomen: Normal bowel sounds, Soft Extremities: No edema Vitals VITALS Vital Signs Date Time Temp Pulse Resp B/P (MAP) Pulse Ox O2 Delivery O2 Flow Rate FiO2 03/16/17 16:21 75 157/72 03/16/17 11:00 98.1 16 99 Room Air 98.1 03/16/17 06:55 2.0 Labs Labs Laboratory Tests Test 03/16/17 06:08 03/16/17 06:25 03/16/17 09:25 03/16/17 10:30 Glucose (Fingerstick) 169 mg/dL (70-99) 93 mg/dL (70-99) White Blood Count 9.3 x10^3/uL (4.0-11.0) Red Blood Count 4.95 x10^6/uL (3.50-5.40) Hemoglobin 14.7 g/dL (12.0-15.5) Hematocrit 44.9 % (36.0-47.0) Mean Corpuscular Volume 91 fL (79-100) Mean Corpuscular Hemoglobin 30 pg (25-35) Mean Corpuscular Hemoglobin Concent 33 g/dL (31-37) Red Cell Distribution Width 15.2 % (11.5-14.5) Platelet Count 100 x10^3/uL (140-400) Neutrophils (%) (Auto) 70 % (31-73) Lymphocytes (%) (Auto) 17 % (24-48) Monocytes (%) (Auto) 13 % (0-9) Eosinophils (%) (Auto) 1 % (0-3) Basophils (%) (Auto) 1 % (0-3) Neutrophils # (Auto) 6.4 x10^3uL (1.8-7.7) Lymphocytes # (Auto) 1.5 x10^3/uL (1.0-4.8) Monocytes # (Auto) 1.2 x10^3/uL (0.0-1.1) Eosinophils # (Auto) 0.1 x10^3/uL (0.0-0.7) Basophils # (Auto) 0.1 x10^3/uL (0.0-0.2) Urine Collection Type Unknown Urine Color Yellow Urine Clarity Clear Urine pH 5.5 Urine Specific [place] 1.015 Urine Protein Negative mg/dL (NEG-TRACE) Urine Glucose (UA) 500 mg/dL (NEG) Urine Ketones (Stick) Negative mg/dL (NEG) Urine Blood Negative (NEG) Urine Nitrite Positive (NEG) Urine Bilirubin Negative (NEG) Urine Urobilinogen Dipstick 0.2 mg/dL (0.2 mg/dL) Urine Leukocyte Esterase Moderate (NEG) Urine RBC Occ /HPF (0-2) Urine WBC 20-40 /HPF (0-4) Urine Squamous Epithelial Cells Mod /LPF Urine Bacteria Many /HPF (0-FEW) Sodium Level 143 mmol/L (136-145) Potassium Level 3.9 mmol/L (3.5-5.1) Chloride Level 104 mmol/L (98-107) Carbon Dioxide Level 26 mmol/L (21-32) Anion Gap 13 (6-14) Blood Urea Nitrogen 17 mg/dL (7-20) Creatinine 1.1 mg/dL (0.6-1.0) Estimated GFR (Cockcroft-Gault) 48.8 BUN/Creatinine Ratio 15 (6-20) Glucose Level 131 mg/dL (70-99) Lactic Acid Level 2.4 mmol/L (0.4-2.0) 2.1 mmol/L (0.4-2.0) Calcium Level 10.2 mg/dL (8.5-10.1) Magnesium Level 1.6 mg/dL (1.8-2.4) Total Bilirubin 0.6 mg/dL (0.2-1.0) Aspartate Amino Transf (AST/SGOT) 36 U/L (15-37) Alanine Aminotransferase (ALT/SGPT) 23 U/L (14-59) Alkaline Phosphatase 126 U/L (46-116) Creatine Kinase 62 U/L (26-192) Creatine Kinase MB (Mass) 3.2 ng/mL (0.0-3.6) Creatine Kinase MB Relative Index % (0-4) Troponin I Quantitative 0.142 ng/mL (0.000-0.055) DZ-Kwz-T-Type Natriuretic Peptide 422 pg/mL (0-124) Total Protein 9.4 g/dL (6.4-8.2) Albumin 4.0 g/dL (3.4-5.0) Albumin/Globulin Ratio 0.7 (1.0-1.7) Thyroid Stimulating Hormone (TSH) 5.348 uIU/mL (0.358-3.74) Test 03/16/17 11:42 03/16/17 14:15 Glucose (Fingerstick) 97 mg/dL (70-99) Troponin I Quantitative 0.174 ng/mL (0.000-0.055) Laboratory Tests Test 03/16/17 06:08 8/5/17 06:25 03/16/17 09:25 03/16/17 10:30 Glucose (Fingerstick) 169 mg/dL (70-99) 93 mg/dL (70-99) White Blood Count 9.3 x10^3/uL (4.0-11.0) Red Blood Count 4.95 x10^6/uL (3.50-5.40) Hemoglobin 14.7 g/dL (12.0-15.5) Hematocrit 44.9 % (36.0-47.0) Mean Corpuscular Volume 91 fL (79-100) Mean Corpuscular Hemoglobin 30 pg (25-35) Mean Corpuscular Hemoglobin Concent 33 g/dL (31-37) Red Cell Distribution Width 15.2 % (11.5-14.5) Platelet Count 100 x10^3/uL (140-400) Neutrophils (%) (Auto) 70 % (31-73) Lymphocytes (%) (Auto) 17 % (24-48) Monocytes (%) (Auto) 13 % (0-9) Eosinophils (%) (Auto) 1 % (0-3) Basophils (%) (Auto) 1 % (0-3) Neutrophils # (Auto) 6.4 x10^3uL (1.8-7.7) Lymphocytes # (Auto) 1.5 x10^3/uL (1.0-4.8) Monocytes # (Auto) 1.2 x10^3/uL (0.0-1.1) Eosinophils # (Auto) 0.1 x10^3/uL (0.0-0.7) Basophils # (Auto) 0.1 x10^3/uL (0.0-0.2) Urine Collection Type Unknown Urine Color Yellow Urine Clarity Clear Urine pH 5.5 Urine Specific [place] 1.015 Urine Protein Negative mg/dL (NEG-TRACE) Urine Glucose (UA) 500 mg/dL (NEG) Urine Ketones (Stick) Negative mg/dL (NEG) Urine Blood Negative (NEG) Urine Nitrite Positive (NEG) Urine Bilirubin Negative (NEG) Urine Urobilinogen Dipstick 0.2 mg/dL (0.2 mg/dL) Urine Leukocyte Esterase Moderate (NEG) Urine RBC Occ /HPF (0-2) Urine WBC 20-40 /HPF (0-4) Urine Squamous Epithelial Cells Mod /LPF Urine Bacteria Many /HPF (0-FEW) Sodium Level 143 mmol/L (136-145) Potassium Level 3.9 mmol/L (3.5-5.1) Chloride Level 104 mmol/L (98-107) Carbon Dioxide Level 26 mmol/L (21-32) Anion Gap 13 (6-14) Blood Urea Nitrogen 17 mg/dL (7-20) Creatinine 1.1 mg/dL (0.6-1.0) Estimated GFR (Cockcroft-Gault) 48.8 BUN/Creatinine Ratio 15 (6-20) Glucose Level 131 mg/dL (70-99) Lactic Acid Level 2.4 mmol/L (0.4-2.0) 2.1 mmol/L (0.4-2.0) Calcium Level 10.2 mg/dL (8.5-10.1) Magnesium Level 1.6 mg/dL (1.8-2.4) Total Bilirubin 0.6 mg/dL (0.2-1.0) Aspartate Amino Transf (AST/SGOT) 36 U/L (15-37) Alanine Aminotransferase (ALT/SGPT) 23 U/L (14-59) Alkaline Phosphatase 126 U/L (46-116) Creatine Kinase 62 U/L (26-192) Creatine Kinase MB (Mass) 3.2 ng/mL (0.0-3.6) Creatine Kinase MB Relative Index % (0-4) Troponin I Quantitative 0.142 ng/mL (0.000-0.055) SJ-Rlt-I-Type Natriuretic Peptide 422 pg/mL (0-124) Total Protein 9.4 g/dL (6.4-8.2) Albumin 4.0 g/dL (3.4-5.0) Albumin/Globulin Ratio 0.7 (1.0-1.7) Thyroid Stimulating Hormone (TSH) 5.348 uIU/mL (0.358-3.74) Test 03/16/17 11:42 03/16/17 14:15 Glucose (Fingerstick) 97 mg/dL (70-99) Troponin I Quantitative 0.174 ng/mL (0.000-0.055) Assessment/Plan Assessment/Plan Patient comes in after an episode of syncope that may have been secondary to hypoglycemia however we cannot rule out the possibility of dysrhythmias at this point therefore I would like to continue to monitor her and get an echocardiogram to evaluate the current left ventricular function. She had a mild elevation of the troponin and this may have been due to profound hypoglycemia if that's what the problem was. Her EKGs are not showing anything acute. Thank you very much for asking me to participate in the care of this patient JAN EATON MD Mar 16, 2017 16:39
[2017-03-16] MEDS: INSULIN ASPART 300 UNITS/3 ML INSULN.PEN SQ SCH ×2 (16:56→16:57)
[2017-03-16] MEDS ORDERED: metFORMIN 500 MG TABLET PO SCH (17:00)
[2017-03-16 19:40] VITALS: BP 143/71
[2017-03-16] MEDS: BUDESONIDE 0.5 MG/2 ML NEBU. NEB SCH (20:00)
[2017-03-16] MEDS: ALBUTEROL SULFATE 2.5 MG/3 ML NEBU. NEB SCH (20:00)
[2017-03-16] MEDS ORDERED: INSULIN DETEMIR 300 UNITS/3 ML INSULN.PEN. SQ SCH (21:00)
[2017-03-16] MEDS ORDERED: NON FORMULARY ITEM (Albuterol Sulfate (Ventolin Hfa Inhaler) 2 PUFF) INH SCH (21:00)
[2017-03-16] MEDS ORDERED: NON FORMULARY ITEM (Budesonide/Formoterol Fumarate (Symbicort 80-4.5 Mcg Inhaler) 2 PUFF) IH SCH (21:00)
[2017-03-16] MEDS: buPROPion SR 100 MG TABLET.SA. PO SCH (21:20)
[2017-03-16] MEDS: ATORVASTATIN CALCIUM 40 MG TABLET. PO SCH (21:20)
[2017-03-16] MEDS: SERTRALINE 50 MG TABLET. PO SCH (21:20)
[2017-03-16] MEDS: INSULIN DETEMIR 300 UNITS/3 ML INSULN.PEN. SQ SCH (21:31)
[2017-03-16 23:57] VITALS: BP 159/75
[2017-03-17] MEDS: IV NORMAL SALINE 1000ML BAG 1,000 ML IV SCH (00:14)
[2017-03-17 03:55] VITALS: BP 195/80
[2017-03-17] MEDS: LEVOTHYROXINE 75 MCG TABLET PO SCH (06:41)
[2017-03-17 07:00] VITALS: BP 157/67
[2017-03-17] MEDS: BUDESONIDE 0.5 MG/2 ML NEBU. NEB SCH ×2 (07:42→19:44)
[2017-03-17] MEDS: ALBUTEROL SULFATE 2.5 MG/3 ML NEBU. NEB SCH ×4 (07:42→19:44)
[2017-03-17 08:15] LABS: BASO # 0.1 x10^3/uL (0.0-0.2); BASO % 1 % (0-3); EOS % 2 % (0-3); HEMATOCRIT 42.3 % (36.0-47.0); HEMOGLOBIN 13.8 g/dL (12.0-15.5); LYMPH # 2.6 x10^3/uL (1.0-4.8); LYMPH % 31 % (24-48); MEAN CORPUSCULAR HEMOGLOBIN 30 pg (25-35); MEAN CORPUSCULAR HGB CONC 33 g/dL (31-37); MEAN CORPUSCULAR VOLUME 91 fL (79-100); MONO % 10 % (0-9); NEUT % 56 % (31-73); PLATELET COUNT 92 x10^3/uL (140-400); RED BLOOD COUNT 4.67 x10^6/uL (3.50-5.40); RED CELL DISTRIBUTION WIDTH 15.4 % (11.5-14.5); WHITE BLOOD COUNT 8.3 x10^3/uL (4.0-11.0)
[2017-03-17 08:40] LABS: CALCIUM 8.6 mg/dL (8.5-10.1); GFR 54.5; POTASSIUM 4.3 mmol/L (3.5-5.1)
[2017-03-17] MEDS: CETIRIZINE HCL 10 MG TABLET. PO SCH (08:58)
[2017-03-17] MEDS: EZETIMIBE 10 MG TABLET. PO SCH (08:58)
[2017-03-17] MEDS: ASPIRIN ENTERIC COATED 81 MG TABLET.DR. PO SCH (08:59)
[2017-03-17] MEDS: predniSONE 5 MG TABLET PO SCH (08:59)
[2017-03-17] MEDS: LOSARTAN POTASSIUM 50 MG TABLET. PO SCH (08:59)
[2017-03-17] MEDS: SERTRALINE 50 MG TABLET. PO SCH ×2 (08:59→21:26)
[2017-03-17] MEDS: METOPROLOL TART IMMED RELEASE 25 MG TABLET. PO SCH (09:00)
[2017-03-17] MEDS: buPROPion SR 100 MG TABLET.SA. PO SCH ×2 (09:00→21:26)
[2017-03-17] MEDS: CIPROFLOXACIN 400MG PREMIX 200 ML IV SCH ×2 (09:00→21:26)
[2017-03-17] MEDS: INSULIN ASPART 300 UNITS/3 ML INSULN.PEN SQ SCH ×6 (09:09→17:08)
[2017-03-17 11:00] VITALS: BP 129/54
--- NOTE | 2017-03-17 12:58 | EKG ---
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
--- NOTE | 2017-03-17 13:18 | PDOC ---
PROGRESS NOTES Chief Complaint Chief Complaint syncope, vasovagal and, hypoglycemia and UTI metabolic encephalopathy from UTI, better h/o CAD wo chest pain now, + troponin dm2 htn h/o asthma hld hypothyroidism hypothermia ckd3 chronic urine incontinence, w/ uti weakness, mult falls at home History of Present Illness History of Present Illness card consult following sepsis better, cx pending, cont Cipro, insulin levemir 30u qhs, aspart 10 tid, ssi ptot dvt ppx cont home meds check echo, pending Vitals Vitals Vital Signs Date Time Temp Pulse Resp B/P (MAP) Pulse Ox O2 Delivery O2 Flow Rate FiO2 03/17/17 11:35 97 Room Air 03/17/17 11:00 98.0 67 20 129/54 (79) 98.0 Physical Exam General: Alert, Oriented X3, Cooperative Heart: Regular rate, Normal S1, Normal S2 Abdomen: Normal bowel sounds, Soft Extremities: No edema Labs LABS Laboratory Tests Test 03/16/17 14:15 03/16/17 16:52 03/16/17 19:55 03/16/17 20:43 Troponin I Quantitative 0.174 ng/mL (0.000-0.055) 0.144 ng/mL (0.000-0.055) Glucose (Fingerstick) 123 mg/dL (70-99) 237 mg/dL (70-99) Test 03/17/17 07:13 03/17/17 08:00 03/17/17 11:22 Glucose (Fingerstick) 78 mg/dL (70-99) 97 mg/dL (70-99) White Blood Count 8.3 x10^3/uL (4.0-11.0) Red Blood Count 4.67 x10^6/uL (3.50-5.40) Hemoglobin 13.8 g/dL (12.0-15.5) Hematocrit 42.3 % (36.0-47.0) Mean Corpuscular Volume 91 fL (79-100) Mean Corpuscular Hemoglobin 30 pg (25-35) Mean Corpuscular Hemoglobin Concent 33 g/dL (31-37) Red Cell Distribution Width 15.4 % (11.5-14.5) Platelet Count 92 x10^3/uL (140-400) Neutrophils (%) (Auto) 56 % (31-73) Lymphocytes (%) (Auto) 31 % (24-48) Monocytes (%) (Auto) 10 % (0-9) Eosinophils (%) (Auto) 2 % (0-3) Basophils (%) (Auto) 1 % (0-3) Neutrophils # (Auto) 4.7 x10^3uL (1.8-7.7) Lymphocytes # (Auto) 2.6 x10^3/uL (1.0-4.8) Monocytes # (Auto) 0.9 x10^3/uL (0.0-1.1) Eosinophils # (Auto) 0.1 x10^3/uL (0.0-0.7) Basophils # (Auto) 0.1 x10^3/uL (0.0-0.2) Sodium Level 143 mmol/L (136-145) Potassium Level 4.3 mmol/L (3.5-5.1) Chloride Level 108 mmol/L (98-107) Carbon Dioxide Level 27 mmol/L (21-32) Anion Gap 8 (6-14) Blood Urea Nitrogen 14 mg/dL (7-20) Creatinine 1.0 mg/dL (0.6-1.0) Estimated GFR (Cockcroft-Gault) 54.5 Glucose Level 80 mg/dL (70-99) Calcium Level 8.6 mg/dL (8.5-10.1) Review of Systems Review of Systems feels well no dizzyness, weakness is at baseline she doesnt think she needs pt or ot despite mult falls Assessment and Plan Assessmemt and Plan Problems Medical Problems: (1) Altered mental status Status: Acute (2) Elevated troponin Status: Acute (3) Generalized weakness Status: Acute (4) Hyperglycemia Status: Acute (5) Sepsis Status: Acute Problems: Comment Review of Relevant I have reviewed the following items pilar (where applicable) has been applied. Labs Laboratory Tests Test 03/16/17 06:08 03/16/17 06:25 03/16/17 09:25 03/16/17 10:30 Glucose (Fingerstick) 169 mg/dL (70-99) 93 mg/dL (70-99) White Blood Count 9.3 x10^3/uL (4.0-11.0) Red Blood Count 4.95 x10^6/uL (3.50-5.40) Hemoglobin 14.7 g/dL (12.0-15.5) Hematocrit 44.9 % (36.0-47.0) Mean Corpuscular Volume 91 fL (79-100) Mean Corpuscular Hemoglobin 30 pg (25-35) Mean Corpuscular Hemoglobin Concent 33 g/dL (31-37) Red Cell Distribution Width 15.2 % (11.5-14.5) Platelet Count 100 x10^3/uL (140-400) Neutrophils (%) (Auto) 70 % (31-73) Lymphocytes (%) (Auto) 17 % (24-48) Monocytes (%) (Auto) 13 % (0-9) Eosinophils (%) (Auto) 1 % (0-3) Basophils (%) (Auto) 1 % (0-3) Neutrophils # (Auto) 6.4 x10^3uL (1.8-7.7) Lymphocytes # (Auto) 1.5 x10^3/uL (1.0-4.8) Monocytes # (Auto) 1.2 x10^3/uL (0.0-1.1) Eosinophils # (Auto) 0.1 x10^3/uL (0.0-0.7) Basophils # (Auto) 0.1 x10^3/uL (0.0-0.2) Urine Collection Type Unknown Urine Color Yellow Urine Clarity Clear Urine pH 5.5 Urine Specific [place] 1.015 Urine Protein Negative mg/dL (NEG-TRACE) Urine Glucose (UA) 500 mg/dL (NEG) Urine Ketones (Stick) Negative mg/dL (NEG) Urine Blood Negative (NEG) Urine Nitrite Positive (NEG) Urine Bilirubin Negative (NEG) Urine Urobilinogen Dipstick 0.2 mg/dL (0.2 mg/dL) Urine Leukocyte Esterase Moderate (NEG) Urine RBC Occ /HPF (0-2) Urine WBC 20-40 /HPF (0-4) Urine Squamous Epithelial Cells Mod /LPF Urine Bacteria Many /HPF (0-FEW) Sodium Level 143 mmol/L (136-145) Potassium Level 3.9 mmol/L (3.5-5.1) Chloride Level 104 mmol/L (98-107) Carbon Dioxide Level 26 mmol/L (21-32) Anion Gap 13 (6-14) Blood Urea Nitrogen 17 mg/dL (7-20) Creatinine 1.1 mg/dL (0.6-1.0) Estimated GFR (Cockcroft-Gault) 48.8 BUN/Creatinine Ratio 15 (6-20) Glucose Level 131 mg/dL (70-99) Lactic Acid Level 2.4 mmol/L (0.4-2.0) 2.1 mmol/L (0.4-2.0) Calcium Level 10.2 mg/dL (8.5-10.1) Magnesium Level 1.6 mg/dL (1.8-2.4) Total Bilirubin 0.6 mg/dL (0.2-1.0) Aspartate Amino Transf (AST/SGOT) 36 U/L (15-37) Alanine Aminotransferase (ALT/SGPT) 23 U/L (14-59) Alkaline Phosphatase 126 U/L (46-116) Creatine Kinase 62 U/L (26-192) Creatine Kinase MB (Mass) 3.2 ng/mL (0.0-3.6) Creatine Kinase MB Relative Index % (0-4) Troponin I Quantitative 0.142 ng/mL (0.000-0.055) TO-Yek-S-Type Natriuretic Peptide 422 pg/mL (0-124) Total Protein 9.4 g/dL (6.4-8.2) Albumin 4.0 g/dL (3.4-5.0) Albumin/Globulin Ratio 0.7 (1.0-1.7) Thyroid Stimulating Hormone (TSH) 5.348 uIU/mL (0.358-3.74) Free Thyroxine 0.95 ng/dL (0.76-1.46) Test 03/16/17 11:42 03/16/17 14:15 03/16/17 16:52 03/16/17 19:55 Glucose (Fingerstick) 97 mg/dL (70-99) 123 mg/dL (70-99) Troponin I Quantitative 0.174 ng/mL (0.000-0.055) 0.144 ng/mL (0.000-0.055) Test 03/16/17 20:43 03/17/17 07:13 03/17/17 08:00 03/17/17 11:22 Glucose (Fingerstick) 237 mg/dL (70-99) 78 mg/dL (70-99) 97 mg/dL (70-99) White Blood Count 8.3 x10^3/uL (4.0-11.0) Red Blood Count 4.67 x10^6/uL (3.50-5.40) Hemoglobin 13.8 g/dL (12.0-15.5) Hematocrit 42.3 % (36.0-47.0) Mean Corpuscular Volume 91 fL (79-100) Mean Corpuscular Hemoglobin 30 pg (25-35) Mean Corpuscular Hemoglobin Concent 33 g/dL (31-37) Red Cell Distribution Width 15.4 % (11.5-14.5) Platelet Count 92 x10^3/uL (140-400) Neutrophils (%) (Auto) 56 % (31-73) Lymphocytes (%) (Auto) 31 % (24-48) Monocytes (%) (Auto) 10 % (0-9) Eosinophils (%) (Auto) 2 % (0-3) Basophils (%) (Auto) 1 % (0-3) Neutrophils # (Auto) 4.7 x10^3uL (1.8-7.7) Lymphocytes # (Auto) 2.6 x10^3/uL (1.0-4.8) Monocytes # (Auto) 0.9 x10^3/uL (0.0-1.1) Eosinophils # (Auto) 0.1 x10^3/uL (0.0-0.7) Basophils # (Auto) 0.1 x10^3/uL (0.0-0.2) Sodium Level 143 mmol/L (136-145) Potassium Level 4.3 mmol/L (3.5-5.1) Chloride Level 108 mmol/L (98-107) Carbon Dioxide Level 27 mmol/L (21-32) Anion Gap 8 (6-14) Blood Urea Nitrogen 14 mg/dL (7-20) Creatinine 1.0 mg/dL (0.6-1.0) Estimated GFR (Cockcroft-Gault) 54.5 Glucose Level 80 mg/dL (70-99) Calcium Level 8.6 mg/dL (8.5-10.1) Laboratory Tests Test 03/16/17 14:15 03/16/17 16:52 03/16/17 19:55 03/16/17 20:43 Troponin I Quantitative 0.174 ng/mL (0.000-0.055) 0.144 ng/mL (0.000-0.055) Glucose (Fingerstick) 123 mg/dL (70-99) 237 mg/dL (70-99) Test 03/17/17 07:13 03/17/17 08:00 03/17/17 11:22 Glucose (Fingerstick) 78 mg/dL (70-99) 97 mg/dL (70-99) White Blood Count 8.3 x10^3/uL (4.0-11.0) Red Blood Count 4.67 x10^6/uL (3.50-5.40) Hemoglobin 13.8 g/dL (12.0-15.5) Hematocrit 42.3 % (36.0-47.0) Mean Corpuscular Volume 91 fL (79-100) Mean Corpuscular Hemoglobin 30 pg (25-35) Mean Corpuscular Hemoglobin Concent 33 g/dL (31-37) Red Cell Distribution Width 15.4 % (11.5-14.5) Platelet Count 92 x10^3/uL (140-400) Neutrophils (%) (Auto) 56 % (31-73) Lymphocytes (%) (Auto) 31 % (24-48) Monocytes (%) (Auto) 10 % (0-9) Eosinophils (%) (Auto) 2 % (0-3) Basophils (%) (Auto) 1 % (0-3) Neutrophils # (Auto) 4.7 x10^3uL (1.8-7.7) Lymphocytes # (Auto) 2.6 x10^3/uL (1.0-4.8) Monocytes # (Auto) 0.9 x10^3/uL (0.0-1.1) Eosinophils # (Auto) 0.1 x10^3/uL (0.0-0.7) Basophils # (Auto) 0.1 x10^3/uL (0.0-0.2) Sodium Level 143 mmol/L (136-145) Potassium Level 4.3 mmol/L (3.5-5.1) Chloride Level 108 mmol/L (98-107) Carbon Dioxide Level 27 mmol/L (21-32) Anion Gap 8 (6-14) Blood Urea Nitrogen 14 mg/dL (7-20) Creatinine 1.0 mg/dL (0.6-1.0) Estimated GFR (Cockcroft-Gault) 54.5 Glucose Level 80 mg/dL (70-99) Calcium Level 8.6 mg/dL (8.5-10.1) Microbiology 03/16/17 Blood Culture - Preliminary, Resulted NO GROWTH AFTER 1 DAY 03/16/17 Urine Culture - Preliminary, Resulted 03/16/17 Urine Culture Result 1 (ERENDIRA) - Preliminary, Resulted Medications Current Medications Sodium Chloride 1,000 ml @ 1,000 mls/hr 1X ONCE IV Last administered on 09:20; Start 03/16/17 at 08:30; Stop 03/16/17 at 09:29; Status DC Ciprofloxacin Lactate 200 ml @ 200 mls/hr Q12HR IV Last administered on 09:00; Start 03/16/17 at 08:30 Ondansetron HCl (Zofran) 4 mg PRN Q8HRS PRN IV NAUSEA/VOMITING; Start 03/16/17 at 08:45; Stop 03/17/17 at 08:44; Status DC Sodium Chloride 1,000 ml @ 120 mls/hr Q8H20M IV Last administered on 03/17/17 00:14; Start 03/16/17 at 08:45; Stop 03/17/17 at 08:44; Status DC Aspirin (Ecotrin) 81 mg DAILY PO Last administered on 03/17/17 08:59; Start 03/16/17 at 16:30 Bupropion HCl (Wellbutrin Sr) 100 mg BID PO Last administered on 03/17/17 09:00 ; Start 03/16/17 at 21:00 Cetirizine HCl (ZyrTEC) 10 mg DAILY PO Last administered on 03/17/17 08:58; Start 03/16/17 at 16:30 EZETIMIBE (Zetia) 10 mg DAILY PO Last administered on 03/17/17 08:58; Start 03/16/17 at 16:30 Acetaminophen/ Hydrocodone Bitart (Lortab 5/325) 1 tab PRN Q6HRS PRN PO PAIN; Start 03/16/17 at 15:45 Insulin Aspart (NovoLOG) 10 units TIDAC SQ Last administered on 03/17/17 12:17 ; Start 03/16/17 at 16:30 Levothyroxine Sodium (Synthroid) 75 mcg DAILY07 PO Last administered on 06:41; Start 03/16/17 at 16:30 Metformin HCl (Glucophage) 500 mg BIDWMEALS PO ; Start 03/16/17 at 17:00; Stop at 17:00; Status DC Metoprolol Tartrate (Lopressor) 25 mg DAILY PO Last administered on 03/17/17 09 :00; Start 03/16/17 at 16:30 Prednisone (Prednisone) 5 mg DAILY PO Last administered on 03/17/17 08:59; Start 03/16/17 at 16:30 Non-Formulary Medication 2 puff BID INH ; Start 03/16/17 at 21:00; Status UNV Atorvastatin Calcium (Lipitor) 80 mg QHS PO Last administered on 03/16/17 21:20 ; Start 03/16/17 at 21:00 Non-Formulary Medication 2 puff BID IH ; Start 03/16/17 at 21:00; Status UNV Ergocalciferol (Vitamin D2) 50,000 unit WEEKLY PO ; Start 03/25/17 at 09:00 Insulin Detemir (Levemir) 33 units QHS SQ ; Start 03/16/17 at 21:00; Stop at 21:00; Status DC Losartan Potassium (Cozaar) 100 mg DAILY PO Last administered on 03/17/17 08:59 ; Start 03/16/17 at 16:30 Sertraline HCl (Zoloft) 100 mg BID PO Last administered on 03/17/17 08:59; Start 03/16/17 at 21:00 Acetaminophen (Tylenol) 650 mg PRN Q6HRS PRN PO FEVER; Start 03/16/17 at 15:45 Ondansetron HCl (Zofran) 4 mg PRN Q6HRS PRN IV NAUSEA/VOMITING; Start 03/16/17 at 15:45 Morphine Sulfate 2 mg PRN Q2HR PRN IV PAIN; Start 03/16/17 at 15:45 Tramadol HCl (Ultram) 50 mg PRN Q6HRS PRN PO PAIN; Start 03/16/17 at 15:45 Hydralazine HCl (Apresoline) 10 mg PRN Q4HRS PRN IVP ELEVATED BP, SEE COMMENTS Last administered on 03/17/17 04:53; Start 03/16/17 at 15:45 Docusate Sodium (Colace) 100 mg PRN DAILY PRN PO CONSTIPATION; Start 03/16/17 at 15:45 Enoxaparin Sodium (Lovenox 60mg Syringe) 60 mg 1X ONCE SQ Last administered on 03/16/17 16:18; Start 03/16/17 at 16:30; Stop 03/16/17 at 16:31; Status DC Insulin Aspart (NovoLOG) 0-9 UNITS TIDWMEALS SQ ; Start 03/16/17 at 17:00 Dextrose (Dextrose 50%-Water Syringe) 12.5 gm PRN Q15MIN PRN IV SEE COMMENTS; Start 03/16/17 at 15:45 Insulin Detemir (Levemir) 30 units QHS SQ Last administered on 03/16/17 21:31; Start 03/16/17 at 21:00 Magnesium Sulfate/ Dextrose 50 ml @ 25 mls/hr 1X ONCE IV Last administered on 03/16/17 16:29; Start 03/16/17 at 16:30; Stop 03/16/17 at 18:29; Status DC Albuterol Sulfate (Ventolin Neb Soln) 2.5 mg RTQID NEB Last administered on 03/17 11:34; Start 03/16/17 at 20:00 Budesonide (Pulmicort) 0.5 mg RTBID NEB Last administered on 03/17/17 07:42; Start 03/16/17 at 20:00 Active Scripts Active Hydrocodone-Apap 5-325 (Hydrocodone Bit/Acetaminophen) 1 Each Tablet 1 Tab PO PRN Q6HRS PRN Reported Atorvastatin Calcium 80 Mg Tablet 1 Tab PO HS Ventolin Hfa Inhaler (Albuterol Sulfate) 18 Gm Hfa.aer.ad 2 Puff INH BID Symbicort 80-4.5 Mcg Inhaler (Budesonide/Formoterol Fumarate) 10.2 Gm Hfa.aer.ad 2 Puff IH BID Fish Oil 1,000 Mg Capsule ([place]-3 Fatty Acids/Fish Oil) 1 Each Capsule 1.5 Each PO DAILY D3-50 (Cholecalciferol (Vitamin D3)) 50,000 Unit Capsule 1 Cap PO WEEKLY Cetirizine Hcl 10 Mg Tablet 1 Tab PO DAILY Aspir 81 (Aspirin) 81 Mg Tablet. 1 Tab PO DAILY Lantus Solostar (Insulin Glargine,Hum.rec.anlog) 100 Unit/1 Ml Insuln.pen 33 Units SUBCUT HS Novolog Flexpen (Insulin Aspart) 100 Unit/1 Ml Insuln.pen 10-15 Units SUBCUT TIDAC Metformin Hcl 500 Mg Tablet 500 Mg PO BID Sertraline Hcl 100 Mg Tablet 100 Mg PO BID Zetia (Ezetimibe) 10 Mg Tablet 10 Mg PO DAILY Metoprolol Tartrate 25 Mg Tablet 25 Mg PO DAILY Bupropion Hcl Sr (Bupropion Hcl) 100 Mg Tablet.er 100 Mg PO BID Losartan Potassium 100 Mg Tablet 100 Mg PO DAILY Levothyroxine Sodium 75 Mcg Tablet 75 Mg PO DAILY Prednisone 5 Mg Tablet 5 Mg PO DAILY Vitals/I & O Vital Sign - Last 24 Hours 03/16/17 03/16/17 03/16/17 03/16/17 15:00 16:20 16:21 19:40 Temp 98.9 98.5 98.9 98.5 Pulse 76 75 75 69 Resp 16 18 B/P (MAP) 142/78 (99) 157/72 157/72 143/71 (95) Pulse Ox 98 96 O2 Delivery Room Air Room Air 03/16/17 03/16/17 03/17/17 03/17/17 20:00 23:57 03:55 04:53 Temp 98.1 98.0 98.1 98.0 Pulse 75 66 65 Resp 17 B/P (MAP) 159/75 (103) 195/80 (118) 195/80 Pulse Ox 95 97 O2 Delivery Room Air Room Air Room Air 03/17/17 03/17/17 03/17/17 03/17/17 07:00 07:40 07:44 08:59 Temp 98.3 98.3 Pulse 85 85 Resp 18 B/P (MAP) 157/67 (97) 157/67 Pulse Ox 94 97 O2 Delivery Room Air Room Air Room Air 03/17/17 03/17/17 03/17/17 09:00 11:00 11:35 Temp 98.0 98.0 Pulse 85 67 Resp 20 B/P (MAP) 157/67 129/54 (79) Pulse Ox 98 97 O2 Delivery Room Air Room Air Intake and Output 03/16/17 03/16/17 03/17/17 15:00 23:00 07:00 Intake Total 480 ml 1025 ml Output Total 950 ml 1650 ml Balance 480 ml -950 ml -625 ml LUCILA SAUNDERS MD Mar 17, 2017 13:18
[2017-03-17 15:00] VITALS: BP 138/50
--- NOTE | 2017-03-17 15:41 | PDOC ---
PROGRESS NOTES Subjective Subjective Pt feels better. V S Stable Echocardiogram pending Objective Objective Vital Signs Date Time Temp Pulse Resp B/P (MAP) Pulse Ox O2 Delivery O2 Flow Rate FiO2 03/17/17 15:00 98.0 65 20 138/50 (79) 96 Room Air 98.0 03/16/17 06:55 2.0 Intake and Output 03/17/17 07:00 Intake Total 1505 ml Output Total 2600 ml Balance -1095 ml Intake Oral 480 ml IV Total 1025 ml Output Urine Total 2600 ml # Voids 1 Physical Exam Physical Exam No significant changes in cardiac exam Assessment Assessment Pt improving, echocardiogram pending Possibly home soon Comment Review of Relevant I have reviewed the following items pilar (where applicable) has been applied. Labs Laboratory Tests Test 03/16/17 06:08 03/16/17 06:25 03/16/17 09:25 03/16/17 10:30 Glucose (Fingerstick) 169 mg/dL (70-99) 93 mg/dL (70-99) White Blood Count 9.3 x10^3/uL (4.0-11.0) Red Blood Count 4.95 x10^6/uL (3.50-5.40) Hemoglobin 14.7 g/dL (12.0-15.5) Hematocrit 44.9 % (36.0-47.0) Mean Corpuscular Volume 91 fL (79-100) Mean Corpuscular Hemoglobin 30 pg (25-35) Mean Corpuscular Hemoglobin Concent 33 g/dL (31-37) Red Cell Distribution Width 15.2 % (11.5-14.5) Platelet Count 100 x10^3/uL (140-400) Neutrophils (%) (Auto) 70 % (31-73) Lymphocytes (%) (Auto) 17 % (24-48) Monocytes (%) (Auto) 13 % (0-9) Eosinophils (%) (Auto) 1 % (0-3) Basophils (%) (Auto) 1 % (0-3) Neutrophils # (Auto) 6.4 x10^3uL (1.8-7.7) Lymphocytes # (Auto) 1.5 x10^3/uL (1.0-4.8) Monocytes # (Auto) 1.2 x10^3/uL (0.0-1.1) Eosinophils # (Auto) 0.1 x10^3/uL (0.0-0.7) Basophils # (Auto) 0.1 x10^3/uL (0.0-0.2) Urine Collection Type Unknown Urine Color Yellow Urine Clarity Clear Urine pH 5.5 Urine Specific [place] 1.015 Urine Protein Negative mg/dL (NEG-TRACE) Urine Glucose (UA) 500 mg/dL (NEG) Urine Ketones (Stick) Negative mg/dL (NEG) Urine Blood Negative (NEG) Urine Nitrite Positive (NEG) Urine Bilirubin Negative (NEG) Urine Urobilinogen Dipstick 0.2 mg/dL (0.2 mg/dL) Urine Leukocyte Esterase Moderate (NEG) Urine RBC Occ /HPF (0-2) Urine WBC 20-40 /HPF (0-4) Urine Squamous Epithelial Cells Mod /LPF Urine Bacteria Many /HPF (0-FEW) Sodium Level 143 mmol/L (136-145) Potassium Level 3.9 mmol/L (3.5-5.1) Chloride Level 104 mmol/L (98-107) Carbon Dioxide Level 26 mmol/L (21-32) Anion Gap 13 (6-14) Blood Urea Nitrogen 17 mg/dL (7-20) Creatinine 1.1 mg/dL (0.6-1.0) Estimated GFR (Cockcroft-Gault) 48.8 BUN/Creatinine Ratio 15 (6-20) Glucose Level 131 mg/dL (70-99) Lactic Acid Level 2.4 mmol/L (0.4-2.0) 2.1 mmol/L (0.4-2.0) Calcium Level 10.2 mg/dL (8.5-10.1) Magnesium Level 1.6 mg/dL (1.8-2.4) Total Bilirubin 0.6 mg/dL (0.2-1.0) Aspartate Amino Transf (AST/SGOT) 36 U/L (15-37) Alanine Aminotransferase (ALT/SGPT) 23 U/L (14-59) Alkaline Phosphatase 126 U/L (46-116) Creatine Kinase 62 U/L (26-192) Creatine Kinase MB (Mass) 3.2 ng/mL (0.0-3.6) Creatine Kinase MB Relative Index % (0-4) Troponin I Quantitative 0.142 ng/mL (0.000-0.055) IY-Pur-S-Type Natriuretic Peptide 422 pg/mL (0-124) Total Protein 9.4 g/dL (6.4-8.2) Albumin 4.0 g/dL (3.4-5.0) Albumin/Globulin Ratio 0.7 (1.0-1.7) Thyroid Stimulating Hormone (TSH) 5.348 uIU/mL (0.358-3.74) Free Thyroxine 0.95 ng/dL (0.76-1.46) Test 03/16/17 11:42 03/16/17 14:15 03/16/17 16:52 03/16/17 19:55 Glucose (Fingerstick) 97 mg/dL (70-99) 123 mg/dL (70-99) Troponin I Quantitative 0.174 ng/mL (0.000-0.055) 0.144 ng/mL (0.000-0.055) Test 03/16/17 20:43 03/17/17 07:13 03/17/17 08:00 03/17/17 11:22 Glucose (Fingerstick) 237 mg/dL (70-99) 78 mg/dL (70-99) 97 mg/dL (70-99) White Blood Count 8.3 x10^3/uL (4.0-11.0) Red Blood Count 4.67 x10^6/uL (3.50-5.40) Hemoglobin 13.8 g/dL (12.0-15.5) Hematocrit 42.3 % (36.0-47.0) Mean Corpuscular Volume 91 fL (79-100) Mean Corpuscular Hemoglobin 30 pg (25-35) Mean Corpuscular Hemoglobin Concent 33 g/dL (31-37) Red Cell Distribution Width 15.4 % (11.5-14.5) Platelet Count 92 x10^3/uL (140-400) Neutrophils (%) (Auto) 56 % (31-73) Lymphocytes (%) (Auto) 31 % (24-48) Monocytes (%) (Auto) 10 % (0-9) Eosinophils (%) (Auto) 2 % (0-3) Basophils (%) (Auto) 1 % (0-3) Neutrophils # (Auto) 4.7 x10^3uL (1.8-7.7) Lymphocytes # (Auto) 2.6 x10^3/uL (1.0-4.8) Monocytes # (Auto) 0.9 x10^3/uL (0.0-1.1) Eosinophils # (Auto) 0.1 x10^3/uL (0.0-0.7) Basophils # (Auto) 0.1 x10^3/uL (0.0-0.2) Sodium Level 143 mmol/L (136-145) Potassium Level 4.3 mmol/L (3.5-5.1) Chloride Level 108 mmol/L (98-107) Carbon Dioxide Level 27 mmol/L (21-32) Anion Gap 8 (6-14) Blood Urea Nitrogen 14 mg/dL (7-20) Creatinine 1.0 mg/dL (0.6-1.0) Estimated GFR (Cockcroft-Gault) 54.5 Glucose Level 80 mg/dL (70-99) Calcium Level 8.6 mg/dL (8.5-10.1) Laboratory Tests Test 03/16/17 16:52 03/16/17 19:55 03/16/17 20:43 03/17/17 07:13 Glucose (Fingerstick) 123 mg/dL (70-99) 237 mg/dL (70-99) 78 mg/dL (70-99) Troponin I Quantitative 0.144 ng/mL (0.000-0.055) Test 03/17/17 08:00 03/17/17 11:22 White Blood Count 8.3 x10^3/uL (4.0-11.0) Red Blood Count 4.67 x10^6/uL (3.50-5.40) Hemoglobin 13.8 g/dL (12.0-15.5) Hematocrit 42.3 % (36.0-47.0) Mean Corpuscular Volume 91 fL (79-100) Mean Corpuscular Hemoglobin 30 pg (25-35) Mean Corpuscular Hemoglobin Concent 33 g/dL (31-37) Red Cell Distribution Width 15.4 % (11.5-14.5) Platelet Count 92 x10^3/uL (140-400) Neutrophils (%) (Auto) 56 % (31-73) Lymphocytes (%) (Auto) 31 % (24-48) Monocytes (%) (Auto) 10 % (0-9) Eosinophils (%) (Auto) 2 % (0-3) Basophils (%) (Auto) 1 % (0-3) Neutrophils # (Auto) 4.7 x10^3uL (1.8-7.7) Lymphocytes # (Auto) 2.6 x10^3/uL (1.0-4.8) Monocytes # (Auto) 0.9 x10^3/uL (0.0-1.1) Eosinophils # (Auto) 0.1 x10^3/uL (0.0-0.7) Basophils # (Auto) 0.1 x10^3/uL (0.0-0.2) Sodium Level 143 mmol/L (136-145) Potassium Level 4.3 mmol/L (3.5-5.1) Chloride Level 108 mmol/L (98-107) Carbon Dioxide Level 27 mmol/L (21-32) Anion Gap 8 (6-14) Blood Urea Nitrogen 14 mg/dL (7-20) Creatinine 1.0 mg/dL (0.6-1.0) Estimated GFR (Cockcroft-Gault) 54.5 Glucose Level 80 mg/dL (70-99) Calcium Level 8.6 mg/dL (8.5-10.1) Glucose (Fingerstick) 97 mg/dL (70-99) Microbiology 03/16/17 Blood Culture - Preliminary, Resulted NO GROWTH AFTER 1 DAY 03/16/17 Urine Culture - Preliminary, Resulted 03/16/17 Urine Culture Result 1 (ERENDIRA) - Preliminary, Resulted Medications Current Medications Sodium Chloride 1,000 ml @ 1,000 mls/hr 1X ONCE IV Last administered on 09:20; Start 03/16/17 at 08:30; Stop 03/16/17 at 09:29; Status DC Ciprofloxacin Lactate 200 ml @ 200 mls/hr Q12HR IV Last administered on 09:00; Start 03/16/17 at 08:30 Ondansetron HCl (Zofran) 4 mg PRN Q8HRS PRN IV NAUSEA/VOMITING; Start 03/16/17 at 08:45; Stop 03/17/17 at 08:44; Status DC Sodium Chloride 1,000 ml @ 120 mls/hr Q8H20M IV Last administered on 03/17/17 00:14; Start 03/16/17 at 08:45; Stop 03/17/17 at 08:44; Status DC Aspirin (Ecotrin) 81 mg DAILY PO Last administered on 03/17/17 08:59; Start 03/16/17 at 16:30 Bupropion HCl (Wellbutrin Sr) 100 mg BID PO Last administered on 03/17/17 09:00 ; Start 03/16/17 at 21:00 Cetirizine HCl (ZyrTEC) 10 mg DAILY PO Last administered on 03/17/17 08:58; Start 03/16/17 at 16:30 EZETIMIBE (Zetia) 10 mg DAILY PO Last administered on 03/17/17 08:58; Start 03/16/17 at 16:30 Acetaminophen/ Hydrocodone Bitart (Lortab 5/325) 1 tab PRN Q6HRS PRN PO PAIN; Start 03/16/17 at 15:45 Insulin Aspart (NovoLOG) 10 units TIDAC SQ Last administered on 03/17/17 12:17 ; Start 03/16/17 at 16:30 Levothyroxine Sodium (Synthroid) 75 mcg DAILY07 PO Last administered on 06:41; Start 03/16/17 at 16:30 Metformin HCl (Glucophage) 500 mg BIDWMEALS PO ; Start 03/16/17 at 17:00; Stop at 17:00; Status DC Metoprolol Tartrate (Lopressor) 25 mg DAILY PO Last administered on 03/17/17 09 :00; Start 03/16/17 at 16:30 Prednisone (Prednisone) 5 mg DAILY PO Last administered on 03/17/17 08:59; Start 03/16/17 at 16:30 Non-Formulary Medication 2 puff BID INH ; Start 03/16/17 at 21:00; Status UNV Atorvastatin Calcium (Lipitor) 80 mg QHS PO Last administered on 03/16/17 21:20 ; Start 03/16/17 at 21:00 Non-Formulary Medication 2 puff BID IH ; Start 03/16/17 at 21:00; Status UNV Ergocalciferol (Vitamin D2) 50,000 unit WEEKLY PO ; Start 03/25/17 at 09:00 Insulin Detemir (Levemir) 33 units QHS SQ ; Start 03/16/17 at 21:00; Stop at 21:00; Status DC Losartan Potassium (Cozaar) 100 mg DAILY PO Last administered on 03/17/17 08:59 ; Start 03/16/17 at 16:30 Sertraline HCl (Zoloft) 100 mg BID PO Last administered on 03/17/17 08:59; Start 03/16/17 at 21:00 Acetaminophen (Tylenol) 650 mg PRN Q6HRS PRN PO FEVER; Start 03/16/17 at 15:45 Ondansetron HCl (Zofran) 4 mg PRN Q6HRS PRN IV NAUSEA/VOMITING; Start 03/16/17 at 15:45 Morphine Sulfate 2 mg PRN Q2HR PRN IV PAIN; Start 03/16/17 at 15:45 Tramadol HCl (Ultram) 50 mg PRN Q6HRS PRN PO PAIN; Start 03/16/17 at 15:45 Hydralazine HCl (Apresoline) 10 mg PRN Q4HRS PRN IVP ELEVATED BP, SEE COMMENTS Last administered on 03/17/17 04:53; Start 03/16/17 at 15:45 Docusate Sodium (Colace) 100 mg PRN DAILY PRN PO CONSTIPATION; Start 03/16/17 at 15:45 Enoxaparin Sodium (Lovenox 60mg Syringe) 60 mg 1X ONCE SQ Last administered on 03/16/17 16:18; Start 03/16/17 at 16:30; Stop 03/16/17 at 16:31; Status DC Insulin Aspart (NovoLOG) 0-9 UNITS TIDWMEALS SQ ; Start 03/16/17 at 17:00 Dextrose (Dextrose 50%-Water Syringe) 12.5 gm PRN Q15MIN PRN IV SEE COMMENTS; Start 03/16/17 at 15:45 Insulin Detemir (Levemir) 30 units QHS SQ Last administered on 03/16/17 21:31; Start 03/16/17 at 21:00 Magnesium Sulfate/ Dextrose 50 ml @ 25 mls/hr 1X ONCE IV Last administered on 03/16/17 16:29; Start 03/16/17 at 16:30; Stop 03/16/17 at 18:29; Status DC Albuterol Sulfate (Ventolin Neb Soln) 2.5 mg RTQID NEB Last administered on 03/17 11:34; Start 03/16/17 at 20:00 Budesonide (Pulmicort) 0.5 mg RTBID NEB Last administered on 03/17/17 07:42; Start 03/16/17 at 20:00 Active Scripts Active Hydrocodone-Apap 5-325 (Hydrocodone Bit/Acetaminophen) 1 Each Tablet 1 Tab PO PRN Q6HRS PRN Reported Atorvastatin Calcium 80 Mg Tablet 1 Tab PO HS Ventolin Hfa Inhaler (Albuterol Sulfate) 18 Gm Hfa.aer.ad 2 Puff INH BID Symbicort 80-4.5 Mcg Inhaler (Budesonide/Formoterol Fumarate) 10.2 Gm Hfa.aer.ad 2 Puff IH BID Fish Oil 1,000 Mg Capsule ([place]-3 Fatty Acids/Fish Oil) 1 Each Capsule 1.5 Each PO DAILY D3-50 (Cholecalciferol (Vitamin D3)) 50,000 Unit Capsule 1 Cap PO WEEKLY Cetirizine Hcl 10 Mg Tablet 1 Tab PO DAILY Aspir 81 (Aspirin) 81 Mg Tablet. 1 Tab PO DAILY Lantus Solostar (Insulin Glargine,Hum.rec.anlog) 100 Unit/1 Ml Insuln.pen 33 Units SUBCUT HS Novolog Flexpen (Insulin Aspart) 100 Unit/1 Ml Insuln.pen 10-15 Units SUBCUT TIDAC Metformin Hcl 500 Mg Tablet 500 Mg PO BID Sertraline Hcl 100 Mg Tablet 100 Mg PO BID Zetia (Ezetimibe) 10 Mg Tablet 10 Mg PO DAILY Metoprolol Tartrate 25 Mg Tablet 25 Mg PO DAILY Bupropion Hcl Sr (Bupropion Hcl) 100 Mg Tablet.er 100 Mg PO BID Losartan Potassium 100 Mg Tablet 100 Mg PO DAILY Levothyroxine Sodium 75 Mcg Tablet 75 Mg PO DAILY Prednisone 5 Mg Tablet 5 Mg PO DAILY Vitals/I & O Vital Sign - Last 24 Hours 03/16/17 03/16/17 03/16/17 03/16/17 16:20 16:21 19:40 20:00 Temp 98.5 98.5 Pulse 75 75 69 Resp 18 B/P (MAP) 157/72 157/72 143/71 (95) Pulse Ox 96 O2 Delivery Room Air Room Air 03/16/17 03/17/17 03/17/17 03/17/17 23:57 03:55 04:53 07:00 Temp 98.1 98.0 98.3 98.1 98.0 98.3 Pulse 75 66 65 85 Resp 18 17 18 B/P (MAP) 159/75 (103) 195/80 (118) 195/80 157/67 (97) Pulse Ox 95 97 94 O2 Delivery Room Air Room Air Room Air 03/17/17 03/17/17 03/17/17 03/17/17 07:40 07:44 08:59 09:00 Pulse 85 85 B/P (MAP) 157/67 157/67 Pulse Ox 97 O2 Delivery Room Air Room Air 03/17/17 03/17/17 03/17/17 11:00 11:35 15:00 Temp 98.0 98.0 98.0 98.0 Pulse 67 65 Resp 20 20 B/P (MAP) 129/54 (79) 138/50 (79) Pulse Ox 98 97 96 O2 Delivery Room Air Room Air Room Air Intake and Output 03/16/17 03/16/17 03/17/17 15:00 23:00 07:00 Intake Total 480 ml 1025 ml Output Total 950 ml 1650 ml Balance 480 ml -950 ml -625 ml JAN EATON MD Mar 17, 2017 15:41
[2017-03-17 19:40] VITALS: BP 170/71
[2017-03-17] MEDS: ATORVASTATIN CALCIUM 40 MG TABLET. PO SCH (21:26)
[2017-03-17] MEDS: INSULIN DETEMIR 300 UNITS/3 ML INSULN.PEN. SQ SCH (21:34)
[2017-03-17 23:05] VITALS: BP 137/53
[2017-03-18 03:13] VITALS: BP 134/47
--- NOTE | 2017-03-18 03:21 | ACF ---
Admission Forms Criteria TELEMETRY CARE Telemetry Admission Guidelines (Place 'X' for any and all applicable criteria): Admission to telemetry [A] may be indicated for ANY ONE of the following(1)(2)(3 )(4)(5): [ ]I. Cardiac disease, including ANY ONE of the following (9)(10)(11)(12)(13 ): [ ]a) Postacute ID [ ]b) Low-risk patients with ST-segment elevation ID who have undergone successful percutaneous coronary intervention [ ]c) Unstable angina [ ]d) Suspected ID (until it is ruled out) [ ]e) Post cardiac surgery (first 48 to 72 hours unless complications occur) [ ]f) Acute arrhythmias (including significant tachycardia or bradycardia) [B] [ ]g) Firing of an implantable cardioverter defibrillator [C] [ ]h) Suspected pacemaker or implantable cardioverter defibrillator malfunction (10) [ ]i) New administration or adjustment of an antiarrhythmic drug [D ] [ ]j) Child admitted for acute congestive heart failure [ ]j) Long QT syndrome [ ]k) Advanced heart block (eg, second-degree Mobitz type II, third- degree heart block) [ ]l) Acute myocarditis or pericarditis [ ]m) Short-term (ambulatory or inpatient) monitoring after a cardiac procedure as indicated by ANY ONE of the following [E]: [ ]i) Electrophysiologic studies [ ]ii) Percutaneous coronary intervention with stent placement [ ]iii) Pacemaker placement with cardiac conduction defect [ ]iv) Implantable cardiac defibrillator placement [ ]II. Drug overdose or poisoning with substance that causes arrhythmias or QT prolongation (eg, phenothiazines, sympathomimetic agents, cyclic antidepressants, digitalis, antiarrhythmic drugs)(15) [ ]III. Short-term (ambulatory or inpatient) monitoring after therapeutic or diagnostic procedure requiring conscious sedation or anesthesia (eg, endoscopy, elective cardioversion) [ ]IV. Acute cerebrovascular even[F](18) [ ]V. Massive blood transfusion (eg, at least 10 units of packed red blood cells in 24 hours) [ ]. Variceal bleeding after endoscopy, sclerotherapy, or IV vasopressin [ ]VII. Uncorrected electrolyte abnormalities associated with an increased risk of dangerous arrhythmia [G]; examples include [ ]a) Hyperkalemia with attributable ECG changes [ ]b) Potassium greater than 6.5 mmol/L (mEq/L) in a patient without history of chronic renal disease [ ]c) Prolonged QT attributed to hypokalemia, hypomagnesemia, or hypocalcemia [X ]VIII.Unexplained syncope or other neurologic event suspected of being due to arrhythmia due to a finding that increases risk; examples include(19)(20)(21): [ ]a) High-risk ECG findings (eg, bifascicular block, bradycardia, abnormal QT interval, ventricular pre- excitation) [ ]b) History of previous syncope due to arrhythmia [ ]c) Abnormal ventricular function (eg, reduced ejection fraction ) [ ]d) Exertional or supine syncope [X ]e) Concerning syncope characteristics (eg, sudden loss of consciousness without prodrome) [ ]f) Family history of sudden [ ]g) Use of arrhythmogenic medication [ ]h) Suspected cardiac ischemia [ ]i) Known channelopathy (eg, long QT syndrome, Brugada syndrome, or catecholaminergic paroxysmal ventricular tachycardia) [ ]j) Known structural heart disease (eg, hypertrophic cardiomyopathy , severe valvular disease) [ ]k) Palpitations preceding syncope The original [employer] content created by [employer] has been revised. The portions of the content which have been revised are identified through the use of italic text or in bold, and [facility] has neither reviewed nor approved the modified material. All other unmodified content is copyright [employer]. Please see references footnoted in the original [employer] edition 2016 Admission Criteria Met?: Yes KIESHA LAZO Mar 18, 2017 03:21
[2017-03-18 03:51] LABS: BASO # 0.1 x10^3/uL (0.0-0.2); BASO % 1 % (0-3); EOS % 2 % (0-3); HEMATOCRIT 36.5 % (36.0-47.0); LYMPH # 2.8 x10^3/uL (1.0-4.8); LYMPH % 40 % (24-48); MEAN CORPUSCULAR HEMOGLOBIN 30 pg (25-35); MEAN CORPUSCULAR HGB CONC 33 g/dL (31-37); MEAN CORPUSCULAR VOLUME 90 fL (79-100); MONO % 13 % (0-9); NEUT % 44 % (31-73); PLATELET COUNT 71 x10^3/uL (140-400); RED BLOOD COUNT 4.04 x10^6/uL (3.50-5.40); RED CELL DISTRIBUTION WIDTH 15.1 % (11.5-14.5)
[2017-03-18 04:12] LABS: ALBUMIN 3.1 g/dL (3.4-5.0); ALBUMIN/GLOBULIN RATIO 0.8 (1.0-1.7); CALCIUM 8.2 mg/dL (8.5-10.1); CREATININE 1.2 mg/dL (0.6-1.0); GFR 44.2; TOTAL BILIRUBIN 0.4 mg/dL (0.2-1.0)
[2017-03-18] MEDS: LEVOTHYROXINE 75 MCG TABLET PO SCH (06:12)
[2017-03-18 07:00] VITALS: BP 149/68
[2017-03-18] MEDS: INSULIN ASPART 300 UNITS/3 ML INSULN.PEN SQ SCH ×4 (07:30→11:54)
[2017-03-18] MEDS: BUDESONIDE 0.5 MG/2 ML NEBU. NEB SCH (08:45)
[2017-03-18] MEDS: ALBUTEROL SULFATE 2.5 MG/3 ML NEBU. NEB SCH ×2 (08:46→12:00)
--- NOTE | 2017-03-18 09:10 | PDOC ---
PROGRESS NOTES Subjective Subjective Pt states that she feels great. No other complaint at this time. Objective Objective Gen: Pt sitting in bed comfortably watching tv. Pt is pleasant and conversational. HEENT: atraumatic Neck: supple; no JVD Card: RRR; no new heart sounds Resp: Rhonchi and rales auscultated in upper and lower lobes bilaterally Neuro: Pt is alert and aware; oriented to person, place and time. Vital Signs Date Time Temp Pulse Resp B/P (MAP) Pulse Ox O2 Delivery O2 Flow Rate FiO2 03/18/17 08:46 96 Room Air 03/18/17 07:00 98.3 68 18 149/68 (95) 98.3 03/16/17 06:55 2.0 Intake and Output 03/18/17 07:00 Intake Total 1140 ml Output Total 1400 ml Balance -260 ml Intake Oral 1140 ml Output Urine Total 1400 ml Assessment Assessment Problems Medical Problems: (1) Altered mental status Status: Acute (2) Elevated troponin Status: Acute (3) Generalized weakness Status: Acute (4) Hyperglycemia Status: Acute (5) Sepsis Status: Acute Pt's cardiac function is stable. No further work-up recommended at this time. Comment Review of Relevant I have reviewed the following items pilar (where applicable) has been applied. Labs Laboratory Tests Test 03/16/17 09:25 03/16/17 10:30 03/16/17 11:42 03/16/17 14:15 Glucose (Fingerstick) 93 mg/dL (70-99) 97 mg/dL (70-99) Lactic Acid Level 2.1 mmol/L (0.4-2.0) Troponin I Quantitative 0.174 ng/mL (0.000-0.055) Test 03/16/17 16:52 03/16/17 19:55 03/16/17 20:43 03/17/17 07:13 Glucose (Fingerstick) 123 mg/dL (70-99) 237 mg/dL (70-99) 78 mg/dL (70-99) Troponin I Quantitative 0.144 ng/mL (0.000-0.055) Test 03/17/17 08:00 03/17/17 11:22 03/17/17 16:29 03/17/17 21:25 White Blood Count 8.3 x10^3/uL (4.0-11.0) Red Blood Count 4.67 x10^6/uL (3.50-5.40) Hemoglobin 13.8 g/dL (12.0-15.5) Hematocrit 42.3 % (36.0-47.0) Mean Corpuscular Volume 91 fL (79-100) Mean Corpuscular Hemoglobin 30 pg (25-35) Mean Corpuscular Hemoglobin Concent 33 g/dL (31-37) Red Cell Distribution Width 15.4 % (11.5-14.5) Platelet Count 92 x10^3/uL (140-400) Neutrophils (%) (Auto) 56 % (31-73) Lymphocytes (%) (Auto) 31 % (24-48) Monocytes (%) (Auto) 10 % (0-9) Eosinophils (%) (Auto) 2 % (0-3) Basophils (%) (Auto) 1 % (0-3) Neutrophils # (Auto) 4.7 x10^3uL (1.8-7.7) Lymphocytes # (Auto) 2.6 x10^3/uL (1.0-4.8) Monocytes # (Auto) 0.9 x10^3/uL (0.0-1.1) Eosinophils # (Auto) 0.1 x10^3/uL (0.0-0.7) Basophils # (Auto) 0.1 x10^3/uL (0.0-0.2) Sodium Level 143 mmol/L (136-145) Potassium Level 4.3 mmol/L (3.5-5.1) Chloride Level 108 mmol/L (98-107) Carbon Dioxide Level 27 mmol/L (21-32) Anion Gap 8 (6-14) Blood Urea Nitrogen 14 mg/dL (7-20) Creatinine 1.0 mg/dL (0.6-1.0) Estimated GFR (Cockcroft-Gault) 54.5 Glucose Level 80 mg/dL (70-99) Calcium Level 8.6 mg/dL (8.5-10.1) Cortisol AM Sample 8.3 ug/dL (6.2-19.4) Glucose (Fingerstick) 97 mg/dL (70-99) 125 mg/dL (70-99) 128 mg/dL (70-99) Test 03/18/17 03:30 03/18/17 07:30 White Blood Count 7.0 x10^3/uL (4.0-11.0) Red Blood Count 4.04 x10^6/uL (3.50-5.40) Hemoglobin 12.0 g/dL (12.0-15.5) Hematocrit 36.5 % (36.0-47.0) Mean Corpuscular Volume 90 fL (79-100) Mean Corpuscular Hemoglobin 30 pg (25-35) Mean Corpuscular Hemoglobin Concent 33 g/dL (31-37) Red Cell Distribution Width 15.1 % (11.5-14.5) Platelet Count 71 x10^3/uL (140-400) Neutrophils (%) (Auto) 44 % (31-73) Lymphocytes (%) (Auto) 40 % (24-48) Monocytes (%) (Auto) 13 % (0-9) Eosinophils (%) (Auto) 2 % (0-3) Basophils (%) (Auto) 1 % (0-3) Neutrophils # (Auto) 3.1 x10^3uL (1.8-7.7) Lymphocytes # (Auto) 2.8 x10^3/uL (1.0-4.8) Monocytes # (Auto) 0.9 x10^3/uL (0.0-1.1) Eosinophils # (Auto) 0.2 x10^3/uL (0.0-0.7) Basophils # (Auto) 0.1 x10^3/uL (0.0-0.2) Sodium Level 143 mmol/L (136-145) Potassium Level 4.0 mmol/L (3.5-5.1) Chloride Level 109 mmol/L (98-107) Carbon Dioxide Level 26 mmol/L (21-32) Anion Gap 8 (6-14) Blood Urea Nitrogen 17 mg/dL (7-20) Creatinine 1.2 mg/dL (0.6-1.0) Estimated GFR (Cockcroft-Gault) 44.2 BUN/Creatinine Ratio 14 (6-20) Glucose Level 170 mg/dL (70-99) Calcium Level 8.2 mg/dL (8.5-10.1) Total Bilirubin 0.4 mg/dL (0.2-1.0) Aspartate Amino Transf (AST/SGOT) 27 U/L (15-37) Alanine Aminotransferase (ALT/SGPT) 23 U/L (14-59) Alkaline Phosphatase 102 U/L (46-116) Total Protein 7.0 g/dL (6.4-8.2) Albumin 3.1 g/dL (3.4-5.0) Albumin/Globulin Ratio 0.8 (1.0-1.7) Glucose (Fingerstick) 78 mg/dL (70-99) Laboratory Tests Test 03/17/17 11:22 03/17/17 16:29 03/17/17 21:25 03/18/17 03:30 Glucose (Fingerstick) 97 mg/dL (70-99) 125 mg/dL (70-99) 128 mg/dL (70-99) White Blood Count 7.0 x10^3/uL (4.0-11.0) Red Blood Count 4.04 x10^6/uL (3.50-5.40) Hemoglobin 12.0 g/dL (12.0-15.5) Hematocrit 36.5 % (36.0-47.0) Mean Corpuscular Volume 90 fL (79-100) Mean Corpuscular Hemoglobin 30 pg (25-35) Mean Corpuscular Hemoglobin Concent 33 g/dL (31-37) Red Cell Distribution Width 15.1 % (11.5-14.5) Platelet Count 71 x10^3/uL (140-400) Neutrophils (%) (Auto) 44 % (31-73) Lymphocytes (%) (Auto) 40 % (24-48) Monocytes (%) (Auto) 13 % (0-9) Eosinophils (%) (Auto) 2 % (0-3) Basophils (%) (Auto) 1 % (0-3) Neutrophils # (Auto) 3.1 x10^3uL (1.8-7.7) Lymphocytes # (Auto) 2.8 x10^3/uL (1.0-4.8) Monocytes # (Auto) 0.9 x10^3/uL (0.0-1.1) Eosinophils # (Auto) 0.2 x10^3/uL (0.0-0.7) Basophils # (Auto) 0.1 x10^3/uL (0.0-0.2) Sodium Level 143 mmol/L (136-145) Potassium Level 4.0 mmol/L (3.5-5.1) Chloride Level 109 mmol/L (98-107) Carbon Dioxide Level 26 mmol/L (21-32) Anion Gap 8 (6-14) Blood Urea Nitrogen 17 mg/dL (7-20) Creatinine 1.2 mg/dL (0.6-1.0) Estimated GFR (Cockcroft-Gault) 44.2 BUN/Creatinine Ratio 14 (6-20) Glucose Level 170 mg/dL (70-99) Calcium Level 8.2 mg/dL (8.5-10.1) Total Bilirubin 0.4 mg/dL (0.2-1.0) Aspartate Amino Transf (AST/SGOT) 27 U/L (15-37) Alanine Aminotransferase (ALT/SGPT) 23 U/L (14-59) Alkaline Phosphatase 102 U/L (46-116) Total Protein 7.0 g/dL (6.4-8.2) Albumin 3.1 g/dL (3.4-5.0) Albumin/Globulin Ratio 0.8 (1.0-1.7) Test 03/18/17 07:30 Glucose (Fingerstick) 78 mg/dL (70-99) Microbiology 03/16/17 Blood Culture - Preliminary, Resulted NO GROWTH AFTER 2 DAYS 03/16/17 Urine Culture - Preliminary, Resulted 03/16/17 Urine Culture Result 1 (ERENDIRA) - Preliminary, Resulted Medications Current Medications Sodium Chloride 1,000 ml @ 1,000 mls/hr 1X ONCE IV Last administered on 09:20; Start 03/16/17 at 08:30; Stop 03/16/17 at 09:29; Status DC Ciprofloxacin Lactate 200 ml @ 200 mls/hr Q12HR IV Last administered on 21:26; Start 03/16/17 at 08:30 Ondansetron HCl (Zofran) 4 mg PRN Q8HRS PRN IV NAUSEA/VOMITING; Start 03/16/17 at 08:45; Stop 03/17/17 at 08:44; Status DC Sodium Chloride 1,000 ml @ 120 mls/hr Q8H20M IV Last administered on 03/17/17 00:14; Start 03/16/17 at 08:45; Stop 03/17/17 at 08:44; Status DC Aspirin (Ecotrin) 81 mg DAILY PO Last administered on 03/17/17 08:59; Start 03/16/17 at 16:30 Bupropion HCl (Wellbutrin Sr) 100 mg BID PO Last administered on 03/17/17 21:26 ; Start 03/16/17 at 21:00 Cetirizine HCl (ZyrTEC) 10 mg DAILY PO Last administered on 03/17/17 08:58; Start 03/16/17 at 16:30 EZETIMIBE (Zetia) 10 mg DAILY PO Last administered on 03/17/17 08:58; Start 03/16/17 at 16:30 Acetaminophen/ Hydrocodone Bitart (Lortab 5/325) 1 tab PRN Q6HRS PRN PO PAIN; Start 03/16/17 at 15:45 Insulin Aspart (NovoLOG) 10 units TIDAC SQ Last administered on 03/17/17 17:08 ; Start 03/16/17 at 16:30 Levothyroxine Sodium (Synthroid) 75 mcg DAILY07 PO Last administered on 06:12; Start 03/16/17 at 16:30 Metformin HCl (Glucophage) 500 mg BIDWMEALS PO ; Start 03/16/17 at 17:00; Stop at 17:00; Status DC Metoprolol Tartrate (Lopressor) 25 mg DAILY PO Last administered on 03/17/17 09 :00; Start 03/16/17 at 16:30 Prednisone (Prednisone) 5 mg DAILY PO Last administered on 03/17/17 08:59; Start 03/16/17 at 16:30 Non-Formulary Medication 2 puff BID INH ; Start 03/16/17 at 21:00; Status UNV Atorvastatin Calcium (Lipitor) 80 mg QHS PO Last administered on 03/17/17 21:26 ; Start 03/16/17 at 21:00 Non-Formulary Medication 2 puff BID IH ; Start 03/16/17 at 21:00; Status UNV Ergocalciferol (Vitamin D2) 50,000 unit WEEKLY PO ; Start 03/25/17 at 09:00 Insulin Detemir (Levemir) 33 units QHS SQ ; Start 03/16/17 at 21:00; Stop at 21:00; Status DC Losartan Potassium (Cozaar) 100 mg DAILY PO Last administered on 03/17/17 08:59 ; Start 03/16/17 at 16:30 Sertraline HCl (Zoloft) 100 mg BID PO Last administered on 03/17/17 21:26; Start 03/16/17 at 21:00 Acetaminophen (Tylenol) 650 mg PRN Q6HRS PRN PO FEVER; Start 03/16/17 at 15:45 Ondansetron HCl (Zofran) 4 mg PRN Q6HRS PRN IV NAUSEA/VOMITING; Start 03/16/17 at 15:45 Morphine Sulfate 2 mg PRN Q2HR PRN IV PAIN; Start 03/16/17 at 15:45 Tramadol HCl (Ultram) 50 mg PRN Q6HRS PRN PO PAIN; Start 03/16/17 at 15:45 Hydralazine HCl (Apresoline) 10 mg PRN Q4HRS PRN IVP ELEVATED BP, SEE COMMENTS Last administered on 03/17/17 04:53; Start 03/16/17 at 15:45 Docusate Sodium (Colace) 100 mg PRN DAILY PRN PO CONSTIPATION; Start 03/16/17 at 15:45 Enoxaparin Sodium (Lovenox 60mg Syringe) 60 mg 1X ONCE SQ Last administered on 03/16/17 16:18; Start 03/16/17 at 16:30; Stop 03/16/17 at 16:31; Status DC Insulin Aspart (NovoLOG) 0-9 UNITS TIDWMEALS SQ ; Start 03/16/17 at 17:00 Dextrose (Dextrose 50%-Water Syringe) 12.5 gm PRN Q15MIN PRN IV SEE COMMENTS; Start 03/16/17 at 15:45 Insulin Detemir (Levemir) 30 units QHS SQ Last administered on 03/17/17 21:34; Start 03/16/17 at 21:00 Magnesium Sulfate/ Dextrose 50 ml @ 25 mls/hr 1X ONCE IV Last administered on 03/16/17 16:29; Start 03/16/17 at 16:30; Stop 03/16/17 at 18:29; Status DC Albuterol Sulfate (Ventolin Neb Soln) 2.5 mg RTQID NEB Last administered on 03/18 08:46; Start 03/16/17 at 20:00 Budesonide (Pulmicort) 0.5 mg RTBID NEB Last administered on 03/18/17 08:45; Start 03/16/17 at 20:00 Active Scripts Active Hydrocodone-Apap 5-325 (Hydrocodone Bit/Acetaminophen) 1 Each Tablet 1 Tab PO PRN Q6HRS PRN Reported Atorvastatin Calcium 80 Mg Tablet 1 Tab PO HS Ventolin Hfa Inhaler (Albuterol Sulfate) 18 Gm Hfa.aer.ad 2 Puff INH BID Symbicort 80-4.5 Mcg Inhaler (Budesonide/Formoterol Fumarate) 10.2 Gm Hfa.aer.ad 2 Puff IH BID Fish Oil 1,000 Mg Capsule (Dickerson-3 Fatty Acids/Fish Oil) 1 Each Capsule 1.5 Each PO DAILY D3-50 (Cholecalciferol (Vitamin D3)) 50,000 Unit Capsule 1 Cap PO WEEKLY Cetirizine Hcl 10 Mg Tablet 1 Tab PO DAILY Aspir 81 (Aspirin) 81 Mg Tablet.dr 1 Tab PO DAILY Lantus Solostar (Insulin Glargine,Hum.rec.anlog) 100 Unit/1 Ml Insuln.pen 33 Units SUBCUT HS Novolog Flexpen (Insulin Aspart) 100 Unit/1 Ml Insuln.pen 10-15 Units SUBCUT TIDAC Metformin Hcl 500 Mg Tablet 500 Mg PO BID Sertraline Hcl 100 Mg Tablet 100 Mg PO BID Zetia (Ezetimibe) 10 Mg Tablet 10 Mg PO DAILY Metoprolol Tartrate 25 Mg Tablet 25 Mg PO DAILY Bupropion Hcl Sr (Bupropion Hcl) 100 Mg Tablet.er 100 Mg PO BID Losartan Potassium 100 Mg Tablet 100 Mg PO DAILY Levothyroxine Sodium 75 Mcg Tablet 75 Mg PO DAILY Prednisone 5 Mg Tablet 5 Mg PO DAILY Vitals/I & O Vital Sign - Last 24 Hours 03/17/17 03/17/17 03/17/17 03/17/17 11:00 11:35 15:00 16:07 Temp 98.0 98.0 98.0 98.0 Pulse 67 65 Resp 20 20 B/P (MAP) 129/54 (79) 138/50 (79) Pulse Ox 98 97 96 97 O2 Delivery Room Air Room Air Room Air Room Air 03/17/17 03/17/17 03/17/17 03/17/17 19:40 19:45 19:50 23:05 Temp 97.3 98.2 97.3 98.2 Pulse 71 77 Resp 18 16 B/P (MAP) 170/71 (104) 137/53 (81) Pulse Ox 92 96 97 O2 Delivery Room Air Room Air Room Air Room Air 03/18/17 03/18/17 03/18/17 03:13 07:00 08:46 Temp 98.2 98.3 98.2 98.3 Pulse 69 68 Resp 16 18 B/P (MAP) 134/47 (76) 149/68 (95) Pulse Ox 95 96 96 O2 Delivery Room Air Room Air Room Air Intake and Output 03/17/17 03/17/17 03/18/17 15:00 23:00 07:00 Intake Total 940 ml 200 ml Output Total 700 ml 700 ml Balance 240 ml -500 ml JAN EATON MD Mar 18, 2017 09:10
[2017-03-18] MEDS: CIPROFLOXACIN 400MG PREMIX 200 ML IV SCH (09:23)
[2017-03-18] MEDS: SERTRALINE 50 MG TABLET. PO SCH (09:24)
[2017-03-18] MEDS: buPROPion SR 100 MG TABLET.SA. PO SCH (09:24)
[2017-03-18] MEDS: LOSARTAN POTASSIUM 50 MG TABLET. PO SCH (09:24)
[2017-03-18] MEDS: CETIRIZINE HCL 10 MG TABLET. PO SCH (09:24)
[2017-03-18] MEDS: ASPIRIN ENTERIC COATED 81 MG TABLET.DR. PO SCH (09:24)
[2017-03-18] MEDS: predniSONE 5 MG TABLET PO SCH (09:24)
[2017-03-18] MEDS: EZETIMIBE 10 MG TABLET. PO SCH (09:24)
[2017-03-18] MEDS: METOPROLOL TART IMMED RELEASE 25 MG TABLET. PO SCH (09:25)
[2017-03-18 11:00] VITALS: BP 142/69
[2017-03-18] MEDS ORDERED: CIPR250T PO (13:38)
--- NOTE | 2017-03-18 14:34 | PDOC ---
PROGRESS NOTES Chief Complaint Chief Complaint syncope, vasovagal and, hypoglycemia and UTI metabolic encephalopathy from UTI, better h/o CAD wo chest pain now, + troponin dm2 htn h/o asthma hld hypothyroidism hypothermia ckd3 chronic urine incontinence, w/ uti weakness, mult falls at home History of Present Illness History of Present Illness plan DC today with home health after f/u by CV team cont home meds check echo, pending Vitals Vitals Vital Signs Date Time Temp Pulse Resp B/P (MAP) Pulse Ox O2 Delivery O2 Flow Rate FiO2 03/18/17 12:01 96 Room Air 03/18/17 11:00 96.0 68 20 142/69 (93) 96.0 Physical Exam General: Alert, Oriented X3, Cooperative Heart: Regular rate, Normal S1, Normal S2 Abdomen: Normal bowel sounds, Soft Extremities: No edema Labs LABS Laboratory Tests Test 03/17/17 16:29 03/17/17 21:25 03/18/17 03:30 03/18/17 07:30 Glucose (Fingerstick) 125 mg/dL (70-99) 128 mg/dL (70-99) 78 mg/dL (70-99) White Blood Count 7.0 x10^3/uL (4.0-11.0) Red Blood Count 4.04 x10^6/uL (3.50-5.40) Hemoglobin 12.0 g/dL (12.0-15.5) Hematocrit 36.5 % (36.0-47.0) Mean Corpuscular Volume 90 fL (79-100) Mean Corpuscular Hemoglobin 30 pg (25-35) Mean Corpuscular Hemoglobin Concent 33 g/dL (31-37) Red Cell Distribution Width 15.1 % (11.5-14.5) Platelet Count 71 x10^3/uL (140-400) Neutrophils (%) (Auto) 44 % (31-73) Lymphocytes (%) (Auto) 40 % (24-48) Monocytes (%) (Auto) 13 % (0-9) Eosinophils (%) (Auto) 2 % (0-3) Basophils (%) (Auto) 1 % (0-3) Neutrophils # (Auto) 3.1 x10^3uL (1.8-7.7) Lymphocytes # (Auto) 2.8 x10^3/uL (1.0-4.8) Monocytes # (Auto) 0.9 x10^3/uL (0.0-1.1) Eosinophils # (Auto) 0.2 x10^3/uL (0.0-0.7) Basophils # (Auto) 0.1 x10^3/uL (0.0-0.2) Sodium Level 143 mmol/L (136-145) Potassium Level 4.0 mmol/L (3.5-5.1) Chloride Level 109 mmol/L (98-107) Carbon Dioxide Level 26 mmol/L (21-32) Anion Gap 8 (6-14) Blood Urea Nitrogen 17 mg/dL (7-20) Creatinine 1.2 mg/dL (0.6-1.0) Estimated GFR (Cockcroft-Gault) 44.2 BUN/Creatinine Ratio 14 (6-20) Glucose Level 170 mg/dL (70-99) Calcium Level 8.2 mg/dL (8.5-10.1) Total Bilirubin 0.4 mg/dL (0.2-1.0) Aspartate Amino Transf (AST/SGOT) 27 U/L (15-37) Alanine Aminotransferase (ALT/SGPT) 23 U/L (14-59) Alkaline Phosphatase 102 U/L (46-116) Total Protein 7.0 g/dL (6.4-8.2) Albumin 3.1 g/dL (3.4-5.0) Albumin/Globulin Ratio 0.8 (1.0-1.7) Test 03/18/17 11:26 Glucose (Fingerstick) 272 mg/dL (70-99) Assessment and Plan Assessmemt and Plan Problems Medical Problems: (1) Altered mental status Status: Acute (2) Elevated troponin Status: Acute (3) Generalized weakness Status: Acute (4) Hyperglycemia Status: Acute (5) Sepsis Status: Acute Problems: Comment Review of Relevant I have reviewed the following items pilar (where applicable) has been applied. Labs Laboratory Tests Test 03/16/17 16:52 03/16/17 19:55 03/16/17 20:43 03/17/17 07:13 Glucose (Fingerstick) 123 mg/dL (70-99) 237 mg/dL (70-99) 78 mg/dL (70-99) Troponin I Quantitative 0.144 ng/mL (0.000-0.055) Test 03/17/17 08:00 03/17/17 11:22 03/17/17 16:29 03/17/17 21:25 White Blood Count 8.3 x10^3/uL (4.0-11.0) Red Blood Count 4.67 x10^6/uL (3.50-5.40) Hemoglobin 13.8 g/dL (12.0-15.5) Hematocrit 42.3 % (36.0-47.0) Mean Corpuscular Volume 91 fL (79-100) Mean Corpuscular Hemoglobin 30 pg (25-35) Mean Corpuscular Hemoglobin Concent 33 g/dL (31-37) Red Cell Distribution Width 15.4 % (11.5-14.5) Platelet Count 92 x10^3/uL (140-400) Neutrophils (%) (Auto) 56 % (31-73) Lymphocytes (%) (Auto) 31 % (24-48) Monocytes (%) (Auto) 10 % (0-9) Eosinophils (%) (Auto) 2 % (0-3) Basophils (%) (Auto) 1 % (0-3) Neutrophils # (Auto) 4.7 x10^3uL (1.8-7.7) Lymphocytes # (Auto) 2.6 x10^3/uL (1.0-4.8) Monocytes # (Auto) 0.9 x10^3/uL (0.0-1.1) Eosinophils # (Auto) 0.1 x10^3/uL (0.0-0.7) Basophils # (Auto) 0.1 x10^3/uL (0.0-0.2) Sodium Level 143 mmol/L (136-145) Potassium Level 4.3 mmol/L (3.5-5.1) Chloride Level 108 mmol/L (98-107) Carbon Dioxide Level 27 mmol/L (21-32) Anion Gap 8 (6-14) Blood Urea Nitrogen 14 mg/dL (7-20) Creatinine 1.0 mg/dL (0.6-1.0) Estimated GFR (Cockcroft-Gault) 54.5 Glucose Level 80 mg/dL (70-99) Calcium Level 8.6 mg/dL (8.5-10.1) Cortisol AM Sample 8.3 ug/dL (6.2-19.4) Glucose (Fingerstick) 97 mg/dL (70-99) 125 mg/dL (70-99) 128 mg/dL (70-99) Test 03/18/17 03:30 03/18/17 07:30 03/18/17 11:26 White Blood Count 7.0 x10^3/uL (4.0-11.0) Red Blood Count 4.04 x10^6/uL (3.50-5.40) Hemoglobin 12.0 g/dL (12.0-15.5) Hematocrit 36.5 % (36.0-47.0) Mean Corpuscular Volume 90 fL (79-100) Mean Corpuscular Hemoglobin 30 pg (25-35) Mean Corpuscular Hemoglobin Concent 33 g/dL (31-37) Red Cell Distribution Width 15.1 % (11.5-14.5) Platelet Count 71 x10^3/uL (140-400) Neutrophils (%) (Auto) 44 % (31-73) Lymphocytes (%) (Auto) 40 % (24-48) Monocytes (%) (Auto) 13 % (0-9) Eosinophils (%) (Auto) 2 % (0-3) Basophils (%) (Auto) 1 % (0-3) Neutrophils # (Auto) 3.1 x10^3uL (1.8-7.7) Lymphocytes # (Auto) 2.8 x10^3/uL (1.0-4.8) Monocytes # (Auto) 0.9 x10^3/uL (0.0-1.1) Eosinophils # (Auto) 0.2 x10^3/uL (0.0-0.7) Basophils # (Auto) 0.1 x10^3/uL (0.0-0.2) Sodium Level 143 mmol/L (136-145) Potassium Level 4.0 mmol/L (3.5-5.1) Chloride Level 109 mmol/L (98-107) Carbon Dioxide Level 26 mmol/L (21-32) Anion Gap 8 (6-14) Blood Urea Nitrogen 17 mg/dL (7-20) Creatinine 1.2 mg/dL (0.6-1.0) Estimated GFR (Cockcroft-Gault) 44.2 BUN/Creatinine Ratio 14 (6-20) Glucose Level 170 mg/dL (70-99) Calcium Level 8.2 mg/dL (8.5-10.1) Total Bilirubin 0.4 mg/dL (0.2-1.0) Aspartate Amino Transf (AST/SGOT) 27 U/L (15-37) Alanine Aminotransferase (ALT/SGPT) 23 U/L (14-59) Alkaline Phosphatase 102 U/L (46-116) Total Protein 7.0 g/dL (6.4-8.2) Albumin 3.1 g/dL (3.4-5.0) Albumin/Globulin Ratio 0.8 (1.0-1.7) Glucose (Fingerstick) 78 mg/dL (70-99) 272 mg/dL (70-99) Laboratory Tests Test 03/17/17 16:29 03/17/17 21:25 03/18/17 03:30 03/18/17 07:30 Glucose (Fingerstick) 125 mg/dL (70-99) 128 mg/dL (70-99) 78 mg/dL (70-99) White Blood Count 7.0 x10^3/uL (4.0-11.0) Red Blood Count 4.04 x10^6/uL (3.50-5.40) Hemoglobin 12.0 g/dL (12.0-15.5) Hematocrit 36.5 % (36.0-47.0) Mean Corpuscular Volume 90 fL (79-100) Mean Corpuscular Hemoglobin 30 pg (25-35) Mean Corpuscular Hemoglobin Concent 33 g/dL (31-37) Red Cell Distribution Width 15.1 % (11.5-14.5) Platelet Count 71 x10^3/uL (140-400) Neutrophils (%) (Auto) 44 % (31-73) Lymphocytes (%) (Auto) 40 % (24-48) Monocytes (%) (Auto) 13 % (0-9) Eosinophils (%) (Auto) 2 % (0-3) Basophils (%) (Auto) 1 % (0-3) Neutrophils # (Auto) 3.1 x10^3uL (1.8-7.7) Lymphocytes # (Auto) 2.8 x10^3/uL (1.0-4.8) Monocytes # (Auto) 0.9 x10^3/uL (0.0-1.1) Eosinophils # (Auto) 0.2 x10^3/uL (0.0-0.7) Basophils # (Auto) 0.1 x10^3/uL (0.0-0.2) Sodium Level 143 mmol/L (136-145) Potassium Level 4.0 mmol/L (3.5-5.1) Chloride Level 109 mmol/L (98-107) Carbon Dioxide Level 26 mmol/L (21-32) Anion Gap 8 (6-14) Blood Urea Nitrogen 17 mg/dL (7-20) Creatinine 1.2 mg/dL (0.6-1.0) Estimated GFR (Cockcroft-Gault) 44.2 BUN/Creatinine Ratio 14 (6-20) Glucose Level 170 mg/dL (70-99) Calcium Level 8.2 mg/dL (8.5-10.1) Total Bilirubin 0.4 mg/dL (0.2-1.0) Aspartate Amino Transf (AST/SGOT) 27 U/L (15-37) Alanine Aminotransferase (ALT/SGPT) 23 U/L (14-59) Alkaline Phosphatase 102 U/L (46-116) Total Protein 7.0 g/dL (6.4-8.2) Albumin 3.1 g/dL (3.4-5.0) Albumin/Globulin Ratio 0.8 (1.0-1.7) Test 03/18/17 11:26 Glucose (Fingerstick) 272 mg/dL (70-99) Microbiology 03/16/17 Blood Culture - Preliminary, Resulted NO GROWTH AFTER 2 DAYS 03/16/17 Urine Culture - Preliminary, Resulted 03/16/17 Urine Culture Result 1 (ERENDIRA) - Preliminary, Resulted Medications Current Medications Sodium Chloride 1,000 ml @ 1,000 mls/hr 1X ONCE IV Last administered on 09:20; Start 03/16/17 at 08:30; Stop 03/16/17 at 09:29; Status DC Ciprofloxacin Lactate 200 ml @ 200 mls/hr Q12HR IV Last administered on 09:23; Start 03/16/17 at 08:30 Ondansetron HCl (Zofran) 4 mg PRN Q8HRS PRN IV NAUSEA/VOMITING; Start 03/16/17 at 08:45; Stop 03/17/17 at 08:44; Status DC Sodium Chloride 1,000 ml @ 120 mls/hr Q8H20M IV Last administered on 03/17/17 00:14; Start 03/16/17 at 08:45; Stop 03/17/17 at 08:44; Status DC Aspirin (Ecotrin) 81 mg DAILY PO Last administered on 03/18/17 09:24; Start 03/16/17 at 16:30 Bupropion HCl (Wellbutrin Sr) 100 mg BID PO Last administered on 03/18/17 09:24 ; Start 03/16/17 at 21:00 Cetirizine HCl (ZyrTEC) 10 mg DAILY PO Last administered on 03/18/17 09:24; Start 03/16/17 at 16:30 EZETIMIBE (Zetia) 10 mg DAILY PO Last administered on 03/18/17 09:24; Start 03/16/17 at 16:30 Acetaminophen/ Hydrocodone Bitart (Lortab 5/325) 1 tab PRN Q6HRS PRN PO PAIN; Start 03/16/17 at 15:45 Insulin Aspart (NovoLOG) 10 units TIDAC SQ Last administered on 03/18/17 11:53 ; Start 03/16/17 at 16:30 Levothyroxine Sodium (Synthroid) 75 mcg DAILY07 PO Last administered on 06:12; Start 03/16/17 at 16:30 Metformin HCl (Glucophage) 500 mg BIDWMEALS PO ; Start 03/16/17 at 17:00; Stop at 17:00; Status DC Metoprolol Tartrate (Lopressor) 25 mg DAILY PO Last administered on 03/18/17 09 :25; Start 03/16/17 at 16:30 Prednisone (Prednisone) 5 mg DAILY PO Last administered on 03/18/17 09:24; Start 03/16/17 at 16:30 Non-Formulary Medication 2 puff BID INH ; Start 03/16/17 at 21:00; Status UNV Atorvastatin Calcium (Lipitor) 80 mg QHS PO Last administered on 03/17/17 21:26 ; Start 03/16/17 at 21:00 Non-Formulary Medication 2 puff BID IH ; Start 03/16/17 at 21:00; Status UNV Ergocalciferol (Vitamin D2) 50,000 unit WEEKLY PO ; Start 03/25/17 at 09:00 Insulin Detemir (Levemir) 33 units QHS SQ ; Start 03/16/17 at 21:00; Stop at 21:00; Status DC Losartan Potassium (Cozaar) 100 mg DAILY PO Last administered on 03/18/17 09:24 ; Start 03/16/17 at 16:30 Sertraline HCl (Zoloft) 100 mg BID PO Last administered on 03/18/17 09:24; Start 03/16/17 at 21:00 Acetaminophen (Tylenol) 650 mg PRN Q6HRS PRN PO FEVER; Start 03/16/17 at 15:45 Ondansetron HCl (Zofran) 4 mg PRN Q6HRS PRN IV NAUSEA/VOMITING; Start 03/16/17 at 15:45 Morphine Sulfate 2 mg PRN Q2HR PRN IV PAIN; Start 03/16/17 at 15:45 Tramadol HCl (Ultram) 50 mg PRN Q6HRS PRN PO PAIN; Start 03/16/17 at 15:45 Hydralazine HCl (Apresoline) 10 mg PRN Q4HRS PRN IVP ELEVATED BP, SEE COMMENTS Last administered on 03/17/17 04:53; Start 03/16/17 at 15:45 Docusate Sodium (Colace) 100 mg PRN DAILY PRN PO CONSTIPATION; Start 03/16/17 at 15:45 Enoxaparin Sodium (Lovenox 60mg Syringe) 60 mg 1X ONCE SQ Last administered on 03/16/17 16:18; Start 03/16/17 at 16:30; Stop 03/16/17 at 16:31; Status DC Insulin Aspart (NovoLOG) 0-9 UNITS TIDWMEALS SQ Last administered on 03/18/17 11:54; Start 03/16/17 at 17:00 Dextrose (Dextrose 50%-Water Syringe) 12.5 gm PRN Q15MIN PRN IV SEE COMMENTS; Start 03/16/17 at 15:45 Insulin Detemir (Levemir) 30 units QHS SQ Last administered on 03/17/17 21:34; Start 03/16/17 at 21:00 Magnesium Sulfate/ Dextrose 50 ml @ 25 mls/hr 1X ONCE IV Last administered on 03/16/17 16:29; Start 03/16/17 at 16:30; Stop 03/16/17 at 18:29; Status DC Albuterol Sulfate (Ventolin Neb Soln) 2.5 mg RTQID NEB Last administered on 03/18 12:00; Start 03/16/17 at 20:00 Budesonide (Pulmicort) 0.5 mg RTBID NEB Last administered on 03/18/17 08:45; Start 03/16/17 at 20:00 Active Scripts Active Ciprofloxacin Hcl 250 Mg Tablet 1 Tab PO BID Hydrocodone-Apap 5-325 (Hydrocodone Bit/Acetaminophen) 1 Each Tablet 1 Tab PO PRN Q6HRS PRN Reported Atorvastatin Calcium 80 Mg Tablet 1 Tab PO HS Ventolin Hfa Inhaler (Albuterol Sulfate) 18 Gm Hfa.aer.ad 2 Puff INH BID Symbicort 80-4.5 Mcg Inhaler (Budesonide/Formoterol Fumarate) 10.2 Gm Hfa.aer.ad 2 Puff IH BID Fish Oil 1,000 Mg Capsule (Pandora-3 Fatty Acids/Fish Oil) 1 Each Capsule 1.5 Each PO DAILY D3-50 (Cholecalciferol (Vitamin D3)) 50,000 Unit Capsule 1 Cap PO WEEKLY Cetirizine Hcl 10 Mg Tablet 1 Tab PO DAILY Aspir 81 (Aspirin) 81 Mg Tablet.dr 1 Tab PO DAILY Lantus Solostar (Insulin Glargine,Hum.rec.anlog) 100 Unit/1 Ml Insuln.pen 33 Units SUBCUT HS Novolog Flexpen (Insulin Aspart) 100 Unit/1 Ml Insuln.pen 10-15 Units SUBCUT TIDAC Metformin Hcl 500 Mg Tablet 500 Mg PO BID Sertraline Hcl 100 Mg Tablet 100 Mg PO BID Zetia (Ezetimibe) 10 Mg Tablet 10 Mg PO DAILY Metoprolol Tartrate 25 Mg Tablet 25 Mg PO DAILY Bupropion Hcl Sr (Bupropion Hcl) 100 Mg Tablet.er 100 Mg PO BID Losartan Potassium 100 Mg Tablet 100 Mg PO DAILY Levothyroxine Sodium 75 Mcg Tablet 75 Mg PO DAILY Prednisone 5 Mg Tablet 5 Mg PO DAILY Vitals/I & O Vital Sign - Last 24 Hours 03/17/17 03/17/17 03/17/17 03/17/17 15:00 16:07 19:40 19:45 Temp 98.0 97.3 98.0 97.3 Pulse 65 71 Resp 20 18 B/P (MAP) 138/50 (79) 170/71 (104) Pulse Ox 96 97 92 96 O2 Delivery Room Air Room Air Room Air Room Air 03/17/17 03/17/17 03/18/17 03/18/17 19:50 23:05 03:13 07:00 Temp 98.2 98.2 98.3 98.2 98.2 98.3 Pulse 77 69 68 Resp 16 16 18 B/P (MAP) 137/53 (81) 134/47 (76) 149/68 (95) Pulse Ox 97 95 96 O2 Delivery Room Air Room Air Room Air Room Air 03/18/17 03/18/17 03/18/17 03/18/17 08:00 08:46 08:50 09:24 Pulse 75 B/P (MAP) 149/68 Pulse Ox 96 96 O2 Delivery Room Air Room Air Room Air 03/18/17 03/18/17 03/18/17 09:25 11:00 12:01 Temp 96.0 96.0 Pulse 73 68 Resp 20 B/P (MAP) 149/68 142/69 (93) Pulse Ox 96 96 O2 Delivery Room Air Room Air Intake and Output 03/17/17 03/17/17 03/18/17 15:00 23:00 07:00 Intake Total 940 ml 200 ml Output Total 700 ml 700 ml Balance 240 ml -500 ml LUCILA SAUNDERS MD Mar 18, 2017 14:34
[2017-03-25] MEDS ORDERED: ERGOCALCIFEROL (VITAMIN D2) 50,000 UNIT CAPSULE. PO SCH (09:00)
== END 2017-03-18 15:55 | disposition home health service (06) | DRG 871 ==
LOC: ER 06:02 → 2 NORTH 08:32
PROVIDERS: ADMIT Internal Medicine; ATTEND Internal Medicine
DX: A41.9 Sepsis, unspecified organism (principal); G93.41 Metabolic encephalopathy; N39.0 Urinary tract infection, site not specified; E87.1 Hypo-osmolality and hyponatremia; I25.10 Atherosclerotic heart disease of native coronary artery without angina pectoris; E11.65 Type 2 diabetes mellitus with hyperglycemia; E11.22 Type 2 diabetes mellitus with diabetic chronic kidney disease; E03.9 Hypothyroidism, unspecified; E78.5 Hyperlipidemia, unspecified; I12.9 Hypertensive chronic kidney disease with stage 1 through stage 4 chronic kidney disease, or unspecified chronic kidney disease; J45.909 Unspecified asthma, uncomplicated; N18.3 Chronic kidney disease, stage 3 (moderate); R32 Unspecified urinary incontinence; E11.649 Type 2 diabetes mellitus with hypoglycemia without coma; R55 Syncope and collapse; Z79.899 Other long term (current) drug therapy; Z90.710 Acquired absence of both cervix and uterus; Z95.5 Presence of coronary angioplasty implant and graft; Z82.49 Family history of ischemic heart disease and other diseases of the circulatory system; Z79.4 Long term (current) use of insulin; Z79.1 Long term (current) use of non-steroidal anti-inflammatories (NSAID); Z79.2 Long term (current) use of antibiotics; Z79.82 Long term (current) use of aspirin; Z88.2 Allergy status to sulfonamides; Z88.8 Allergy status to other drugs, medicaments and biological substances
CPT/HCPCS: 36415; 70450; 71010; 80048; 80053; 81001; 82533; 82553; 82962; 83036; 83605; 83735; 83880; 84439; 84443; 84484; 85027; 87040; 87086; 93005; 93306; 94250; 94640; 96360; J0360; J0744; J1650; J1815; J7030; J7060; J7512; J7613; J7626; 99285-25

== ENCOUNTER 2018-08-26 19:00 | Emergency (ER) | payer MEDICARE, OTHER ==
[~2018-08-26] VITALS: Ht 149.9 cm; Wt 62.1 kg
[~2018-08-26 19:00] MED LIST changes: +ASPI-482 PO; +ATORVASTATIN CA80 MG PO; +BUDE10.22 IH; +BUPR100T8 PO; +CETI10TA16 PO; +CHOL500021 PO; +CIPR250T PO; +EZET10TA18 PO; -HYDR-2758 PO; +HYDR-2761 PO; +INSU100I13 SUBCUT; +INSU100I17 SUBCUT; +LEVO75TA5 PO; +LOSA100T14 PO; +METF500T16 PO; +METO25TA4 PO; +OMEG1CAP6 PO; +PRED5TAB PO; +SERT100T8 PO; +VENTOLIN HFA18 GM INH
[2018-08-26] MEDS ORDERED: ACETAMINOPHEN 325 MG TABLET. PO ONE (20:30)
[2018-08-26] MEDS ORDERED: HYDROcodone/APAP 7.5/325MG 1 TAB TABLET PO ONE (20:30)
--- NOTE | 2018-08-26 22:05 | PHYS DOC ---
Past Medical History Past Medical History: Asthma, CHF, COPD, Diabetes-Type II, High Cholesterol, OR , UTI Past Surgical History: Hysterectomy, Knee Replacement, Tonsillectomy Additional Past Surgical Histo: ANGIOPLASTY, CARDIAC STENT, R ROTATOR CUFF, BILAT TKR, TRIGGER FINGER SX Alcohol Use: None Drug Use: None Adult General Chief Complaint Chief Complaint: RIB PAIN HPI HPI Patient is a 73 year old female who presents with rib pain. Patient states she fell 2 days ago. She states she was getting out of bed and attempting to put on her slippers when she lost her balance and fell. She landed on the right side of her ribs. She complains of rib cage pain. She states it feels difficult to take a deep breath over the last 2 days and the pain has been very severe causing her some difficulties moving around her house. The patient normally lives at home by herself and takes care of herself. She does not require help with ADLs. No fever. No cough. No shortness of breath. A mechanical fall. She did not have dizziness, chest pain, shortness of breath or palpitations surrounding the incident or since the incident. Review of Systems Review of Systems Constitutional: Denies fever Eyes: Denies change in visual acuity HENT: Denies nasal congestion Respiratory: Denies cough or shortness of breath Cardiovascular: No additional information not addressed in HPI GI: Denies abdominal pain : Denies dysuria or hematuria Musculoskeletal: Denies back pain or joint pain Integument: Denies rash or skin lesions Neurologic: Denies focal neuro complaints All other systems were reviewed and found to be within normal limits, except as documented in this note. Current Medications Current Medications Current Medications Medications (Trade) Dose Ordered Sig/Sindy Start Time Stop Time Status Last Admin Dose Admin Acetaminophen (Tylenol) 650 mg 1X ONCE 08/26/18 20:30 08/26/18 20:31 DC 08/26/18 20:43 650 MG Acetaminophen/ Hydrocodone Bitart (Lortab 7.5/325) 1 tab 1X ONCE 08/26/18 20:30 08/26/18 20:31 DC 08/26/18 20:44 1 TAB Allergies Allergies Allergies Coded Allergies Type Severity Reaction Last Updated Verified Sulfa (Sulfonamide Antibiotics) Allergy Intermediate 02/16/17 Yes rofecoxib Allergy Intermediate 02/16/17 Yes Physical Exam Physical Exam Constitutional: Well developed, well nourished, no acute distress, non-toxic appearance HENT: Normocephalic, atraumatic, bilateral external ears normal, oropharynx moist Neck: Normal range of motion Cardiovascular:Heart rate regular rhythm, no murmur Lungs & Thorax: Bilateral breath sounds clear to auscultation, + ecchymosis over the right lateral rib cage Abdomen: Bowel sounds normal, soft, no tenderness Skin: Warm, dry, no erythema, no rash Back: No tenderness, no CVA tenderness. Extremities: No tenderness, no edema Neurologic: Alert and oriented X 3 Psychologic: Affect normal Current Patient Data Vital Signs Vital Signs Date Time Temp Pulse Resp B/P (MAP) Pulse Ox O2 Delivery O2 Flow Rate FiO2 08/26/18 20:44 20 96 Room Air 08/26/18 19:30 98.1 64 185/78 (113) 98.1 EKG EKG [] Radiology/Procedures Radiology/Procedures [] Course & Med Decision Making Course & Med Decision Making Pertinent Labs and Imaging studies reviewed. (See chart for details) Patient was evaluated immediately on arrival to her room. X-rays are ordered. She has some ecchymosis along the posterior lateral aspect of the right rib cage. Suspect rib fracture. She has good air movement in all smith. 22:30: X-ray results are returned. There are no fractures seen on plain film imaging but there is high suspicion that the patient likely has some rib fracture that is simply nondisplaced or not visible on the x-ray. Patient is given incentive spirometry training. She was given 2 Hewitt in the ER and has adequate pain relief. She is discharged home on the same. Patient is advised of the risk of fall when using this medication. She will follow up with her primary care doctor or return to the ER for any new or worsening symptoms. She is accompanied by family members who are driving her home this evening. Dragon Disclaimer Dragon Disclaimer This electronic medical record was generated, in whole or in part, using a voice recognition dictation system. Departure Departure Disposition: HOME, SELF-CARE Condition: GOOD Referrals: JHONNY STREETER Jr, MD (PCP) Scripts Hydrocodone/Apap 5-325 (NORCO 5-325 TABLET) 1 Each Tablet 1-2 EACH PO PRN Q6HRS PRN for SEVERE PAIN, #30 as needed for pain Prov: BRUCE YANES DO 08/26/18 Ibuprofen (IBUPROFEN) 600 Mg Tablet 600 MG PO TID PRN for PAIN, #30 TAB take with food or milk Prov: BRUCE YANES DO 08/26/18 BRUCE YANES DO Aug 26, 2018 22:05
--- NOTE | 2018-08-26 22:20 | RAD ---
PA chest with right RIBS HISTORY: Fell on right side. FINDINGS: Single view chest compared with March 16, 2017 image. Cardiac silhouette is stable. Linear markings are identified in both lung bases, greater than on the prior study, compatible with fibrosis and/or atelectasis. No consolidating infiltrate, large effusion or pneumothorax. There is some moderate stool in the visualized right colon. No evidence of a displaced rib fracture, but area of point tenderness is not indicated. IMPRESSION: Mild atelectasis in lung bases. No definite displaced rib fracture. Electronically signed by: Jacky Matias MD (08/26/2018 10:16 PM) [id number]
[2018-08-26] MEDS ORDERED: HYDR-3164 PO (22:35)
[2018-08-26] MEDS ORDERED: IBUP-1007 PO (22:35)
[2018-08-26 22:47] VITALS: BP 134/62
== END 2018-08-26 23:00 | disposition home or self-care (01) ==
LOC: ER 19:05
DX: S20.211A Contusion of right front wall of thorax, initial encounter (principal); J44.9 Chronic obstructive pulmonary disease, unspecified; E78.00 Pure hypercholesterolemia, unspecified; I25.2 Old myocardial infarction; Z86.79 Personal history of other diseases of the circulatory system; Z88.2 Allergy status to sulfonamides; Z88.8 Allergy status to other drugs, medicaments and biological substances; W01.0XXA Fall on same level from slipping, tripping and stumbling without subsequent striking against object, initial encounter; Y93.89 Activity, other specified; Y92.89 Other specified places as the place of occurrence of the external cause; Y99.8 Other external cause status
CPT/HCPCS: 71101; 99284; G0238

== ENCOUNTER → 2020-04-19 | Outpatient (CLI) | payer MEDICARE, OTHER ==
[~2020-04-19] MED LIST changes: -EZET10TA18 PO; +EZET10TA20 PO; +HYDR-3164 PO; +IBUP-1007 PO
--- NOTE | 2020-04-19 14:24 | KCIC ---
EXAM: DUAL ENERGY X-RAY ABSORPTIOMETRY (DEXA). HISTORY: Postmenopausal screening. FINDINGS: The lowest measured T-score is -2.7 in the left hip, based on a bone mineral density of 0.607 g/cm^2. Refer to the worksheets for full detail. There has been a 15.3 percent decrease in density of the left hip and 14.4 percent increase in density of the lumbar spine compared to a study dated 11/03/2013. IMPRESSION: Osteoporosis. Bone mineral density yields a T-score of -2.5 or less. Fracture risk is high. METHODOLOGY: Dual energy x-ray absorptiometry was performed to measure bone mineral density. The following analysis is based on the 2019 Official Positions of the International Society for Clinical Densitometry: Measurements of the hips and the average of L1-L4 are preferred. When the spine and/or hip cannot be feasibly measured or interpreted, or in the setting of hyperparathyroidism, distal radial bone mineral density may be measured. The lumbar spine T-score is based on the average bone mineral density of L1-L4. In the setting of artifact or anatomic abnormality, some lumbar levels may be excluded, and the remaining levels used for calculation. A single lumbar level is not used for diagnosis, and if only a single level is available for assessment, another anatomic site will be used to assign a diagnosis. The hip T-score is based on the bone mineral density measurement of the femoral neck or total proximal femur of either side, whichever is lowest. Bilateral mean values are not used for diagnosis. The forearm T-score is derived from 33% of the distal radius of the nondominant forearm. Electronically signed by: Lily Bowden MD (04/19/2020 2:22 PM) [id number]
== END | disposition home or self-care (01) ==
LOC: KCIC DEXA 13:41
PROVIDERS: ATTEND Family Medicine
DX: N95.8 Other specified menopausal and perimenopausal disorders (principal); M81.8 Other osteoporosis without current pathological fracture
CPT/HCPCS: 77080